=== PATIENT | female | born 1985 ===

== ENCOUNTER 2018-03-07 10:58 | Emergency (ER) | payer SELFPAY ==
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
[2018-03-07] MEDS ORDERED: THIAMINE HCL(*) 200 MG/2 ML IN 100 MG, FOLIC ACID(*) 50 MG/10 ML INJ 1 MG, MULTIVITAMIN... IV ONE (11:34)
[2018-03-07 12:40] LABS: PLATELET COUNT, AUTOMATED 58 K/uL (150-450)
[2018-03-07] MEDS ORDERED: FURO40TA35 PO (12:42)
[2018-03-07] MEDS ORDERED: OXYC-823 PO (12:42)
[2018-03-07] MEDS ORDERED: LACT10SO82 PO (12:42)
[2018-03-07] MEDS ORDERED: PANT40TA65 PO ×2 (12:42)
[2018-03-07] MEDS ORDERED: SPIR25TA80 PO (12:42)
[2018-03-07] MEDS ORDERED: FOLI-68 PO (12:42)
[2018-03-07] MEDS ORDERED: AMIT150T21 PO (12:42)
[2018-03-07] MEDS ORDERED: POTASSIUM HCL (12:42)
[2018-03-07] MEDS ORDERED: FENT1PAT40 (12:42)
[2018-03-07] MEDS ORDERED: [UNRECOGNIZED DRUG - OTHER] (12:42)
--- NOTE | 2018-03-07 13:32 | RADIOLOGY IMAGING REPORT ---
FACILITY: [facility] PATIENT NAME: Luz Maria Glez : 1985 MR: [id number] V: [id number] EXAM DATE: ORDERING PHYSICIAN: HAY LEMUS TECHNOLOGIST: Location: [facility] [place] Patient: Luz Maria Glez : 1985 Visit/Account:[id number] Date of Sevice: 03/07/2018 EXAMINATION: CT Head without intravenous contrast HISTORY: Headache. TECHNIQUE: Axial images were obtained from the skull base to the vertex without intravenous contrast . Sagittal and coronal reformatted images are also submitted. One of the following dose optimization techniques was utilized in the performance of this exam: Autom ated exposure control; adjustment of the mA and/or kV according to the patient's size; or use of an i terative reconstruction technique. Specific details can be referenced in the facility's radiology C T exam operational policy. COMPARISON: None available. FINDINGS: Brain volume: Normal. Ventricles: Negative. Acute ischemic changes: None. Hemorrhage: None. Masses / edema: None. Mitchell-white: Negative. White matter: Negative. Vessels: Negative. Extra-axial: Negative. Calvarium / skull base: Negative. Visualized sinuses / orbits: Rightward nasal septal deviation. IMPRESSION: No acute intracranial abnormality. Report Dictated By: Vimal Osullivan MD at 03/07/2018 1:23 PM Report E-Signed By: Vimal Osullivan MD at 03/07/2018 1:27 PM [id number]
[2018-03-07 14:07] LABS: INR 1.15
[2018-03-07] MEDS ORDERED: ONDANSETRON 4 MG/2 ML VIAL IVP ONE (15:05)
[2018-03-07 15:30] VITALS: BP 119/75
[2018-03-07] MEDS ORDERED: OXYC15TA79 PO (20:31)
[2018-03-07] MEDS ORDERED: LIPA1CAP PO (20:31)
[2018-03-07] MEDS ORDERED: FENT-19 TD (20:31)
== END 2018-03-07 18:17 ==
LOC: ER 11:06
DX: F10.230 Alcohol dependence with withdrawal, uncomplicated (principal); Y90.6 Blood alcohol level of 120-199 mg/100 ml
CPT/HCPCS: 36415; 70450; 80305; 80320; 80329; 81001; 81025; 82150; 83690; 83735; 83880; 84443; 85025; 85610; 96365; 96366; 96375; 99284; J2405; J3411; J3475; J7030; 82040; 82247; 82310; 82374; 82435; 82565; 82947; 84075; 84132; 84155; 84295; 84450; 84460; 84520

== ENCOUNTER 2018-03-07 15:13 | Inpatient (IN) | payer SELFPAY ==
[~2018-03-07] VITALS: Ht 170.2 cm; Wt 58.5 kg
[~2018-03-07 15:13] MED LIST: AMIT150T21 PO; FENT1PAT40; FOLI-68 PO; FURO40TA35 PO; LACT10SO82 PO; OXYC-823 PO; PANT40TA65 PO; POTASSIUM HCL; SPIR25TA80 PO; [UNRECOGNIZED DRUG - OTHER]
[2018-03-07] MEDS ORDERED: DIAZEPAM 10 MG TAB PO PRN (15:50)
[2018-03-07 16:05] VITALS: BP 116/60
--- NOTE | 2018-03-07 16:44 | Hospitalist Consultation ---
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 Her last drink was this morning. She reports drinking about 1.5 liters of vodka per day. She doesn't report any h/o withdrawal seizures or DT's. She does get tremulous with stopping drinking. 3 years ago, she was diagnosed with chronic pancreatitis. She had a gallbladder taken out. She has chronic abdominal pain related to it and the ESLD, so is on a Fentanyl patch and oxycodone. 2 years ago she was diagnosed with liver failure. She reports being on a transplant list until a few months ago. They took her off the list because of "multi-organ failure". 1 year ago, she was diagnosed with heart failure. She is pretty good about taking her usual medications. She reports stable 2-3 pillow orthopnea. No LE edema or worsening abdominal girth. History Problems: (1) Alcohol abuse (2) Cirrhosis Status: Chronic (3) History of cholecystectomy (4) History of delivery Home Meds Reported Medications Amitriptyline Hcl (AMITRIPTYLINE HCL) 150 Mg Tablet, 150 MG PO BID, TAB 03/07/18 Lactulose (LACTULOSE) 10 Gm/15 Ml Solution, 10 GM PO 03/07/18 [Potassium Hcl] No Conflict Check 03/07/18 Folic Acid (FOLIC ACID) 1 Mg Tablet, 1 MG PO BID, TAB 03/07/18 Furosemide (LASIX) 40 Mg Tablet, 1 TAB PO Q8H, TAB 03/07/18 Fentanyl (Fentanyl) 1 Each Patch.td72 03/07/18 Oxycodone Hcl (OXYCONTIN) 10 Mg Tab.er.12h, 15 MG PO 5XDAY, TAB 03/07/18 [Zep Pep] No Conflict Check 03/07/18 Spironolactone (SPIRONOLACTONE) 25 Mg Tablet, 50 MG PO BID, TAB 03/07/18 Pantoprazole Sodium (PANTOPRAZOLE SODIUM) 40 Mg Tablet.dr, 40 MG PO QDAY, TAB.SR 03/07/18 Discontinued Reported Medications Pantoprazole Sodium (PANTOPRAZOLE SODIUM) 40 Mg Tablet.dr, 40 MG PO QDAY, TAB.SR 03/07/18 Allergies: Coded Allergies: aspirin (Verified Allergy, Unknown, 03/07/18) codeine (Verified Allergy, Unknown, 03/07/18) ketorolac (Verified Allergy, Unknown, 03/07/18) tramadol (Verified Allergy, Unknown, 03/07/18) Uncoded Allergies: SULFA DRUGS (Allergy, Unknown, 03/07/18) Other Social/Family Hx Some marijuana use for pain control. She was living in [place], but moved to [place] to be with her parents recently. Hx Alcohol Use: Yes (ALCOHOLIC) Review of Systems All Systems Reviewed/Normal: Yes, Except as Noted Exam General Appearance: Alert, Awake, No Acute Distress Neuro: No Gross deficits Cardiovascular: Other (Tachy, regular, no m/r/g) Respiratory: Clear to Auscultation GI: Other (Mild distention. Mild pain diffusely with palpation. No peritoneal signs. No rigidity.) Extremities: No Edema Integumentary: No Jaundice, No Cyanosis Medical Decision Making Data Points Item Value Date Time Sodium Level 140 mmol/L 03/07/18 1228 Potassium Level 3.5 mmol/L 03/07/18 1228 Chloride Level 98 mmol/L 03/07/18 1228 Carbon Dioxide Level 24 mmol/L 03/07/18 1228 Blood Urea Nitrogen 4 mg/dl L 03/07/18 1228 Creatinine 0.40 mg/dl L 03/07/18 1228 Glomerular Filtration Rate Calc > 60.0 03/07/18 1228 Random Glucose 113 mg/dl H 03/07/18 1228 Calcium Level 9.9 mg/dl 03/07/18 1228 Magnesium Level 1.5 mg/dl L 03/07/18 1228 Total Bilirubin 0.7 mg/dl 03/07/18 1228 Aspartate Amino Transf (AST/SGOT) 115 U/L H 03/07/18 1228 Alanine Aminotransferase (ALT/SGPT) 63 U/L H 03/07/18 1228 Alkaline Phosphatase 121 U/L 03/07/18 1228 Total Protein 8.3 g/dl H 03/07/18 1228 B-Type Natriuretic Peptide < 5 pg/ml 03/07/18 1228 Albumin 4.7 g/dl 03/07/18 1228 Amylase Level 45 U/L 03/07/18 1228 Lipase 64 U/L 03/07/18 1228 Thyroid Stimulating Hormone (TSH) 2.55 uIU/ml 03/07/18 1228 White Blood Count 7.6 k/uL 03/07/18 1228 Hemoglobin 14.8 g/dL 03/07/18 1228 Mean Corpuscular Volume 103.8 fL H 03/07/18 1228 Platelet Count 58 K/uL L 03/07/18 1228 Neutrophils (%) (Auto) 62.0 % 03/07/18 1228 Lymphocytes (%) (Auto) 26.3 % 03/07/18 1228 Monocytes (%) (Auto) 9.6 % 03/07/18 1228 Prothromb Time International Ratio 1.15 03/07/18 1228 Urine Leukocyte Esterase Negative 03/07/18 1105 Urine RBC None /HPF 03/07/18 1105 Urine WBC 1 /HPF 03/07/18 1105 Urine Squamous Epithelial Cells Many /LPF H 03/07/18 1105 Urine Bacteria Few /HPF 03/07/18 1105 Urine Mucus None /HPF 03/07/18 1105 Urine HCG, Qualitative Negative 03/07/18 1105 Urine Opiates Screen Positive 03/07/18 1105 Ur Tricyclic Antidepressants Screen Positive 03/07/18 1105 Serum Alcohol 167 mg/dl 03/07/18 1228 Acetaminophen Level < 10 ug/ml 03/07/18 1228 Salicylates Level < 10 mg/L 03/07/18 1228 EKG / Imaging Imaging Head CT - No acute intracranial abnormality. Assessment and Plan Problems: (1) Alcohol withdrawal Status: Acute Assessment & Plan: She presented to the ER for alcohol detoxification. She drinks 1.5 liters of vodka a day. Her last drink was the morning of admission. She doesn't have a h/o DT's or alcohol withdrawal seizures. She has been cleared medically to be on [facility] for the withdrawal. (2) Hypomagnesemia Status: Acute Assessment & Plan: Secondary to alcohol use and Lasix use. She received magnesium in the ER via the banana bag. Recheck in the morning. (3) Cirrhosis Status: Chronic Assessment & Plan: The patient reports being on a transplant list and being removed a few months ago because of "multi-organ failure". However, she appears to only have a mild transaminitis. She has normal synthetic function (INR and albumin are wnl) and her total bilirubin is also normal. She does have ascites by exam. Will check an ammonia level. Continue Lactulose at her usual dose. She reports being on Lasix 40mg tid and Spironolactone 50mg bid. She has no LE edema, and BNP is normal. Will change her to Lasix 20mg a day and Spironolactone 50mg a day. (4) Chronic pain Status: Chronic Assessment & Plan: She reports the pain is secondary to the ESLD. She also reports chronic pancreatitis. However, her lipase is normal. I will defer to Dr. Castro about dosing of the chronic pain medications. Copies to: GEN CASTRO MD ; Venous Thromboembolism Antithrombotics Is Pt On Any Antithrombotics?: No JONE PANG MD Mar 07, 2018 16:44
[2018-03-07] MEDS ORDERED: NICOTINE INH SYSTEM 10 MG/INH INH PRN (17:35)
[2018-03-07] MEDS ORDERED: NICOTINE CARTRIDGE 1 EA PO PRN (17:35)
[2018-03-07] MEDS ORDERED: IBUPROFEN 200 MG TAB PO PRN (18:10)
[2018-03-07 19:45] VITALS: BP 110/65
[2018-03-07] MEDS ORDERED: FENT-19 TD (20:31)
[2018-03-07] MEDS ORDERED: LIPA1CAP PO (20:31)
[2018-03-07] MEDS ORDERED: OXYC15TA79 PO (20:31)
[2018-03-07] MEDS: LORazepam 1 MG TAB PO PRN (20:55)
[2018-03-07] MEDS: AMITRIPTYLINE HCL 25 MG TAB PO SCH (21:34)
[2018-03-07] MEDS: fentaNYL 50 MCG TDSY TD SCH (22:07)
[2018-03-08 01:49] VITALS: BP 118/78
[2018-03-08 06:03] VITALS: BP 97/60
[2018-03-08 06:37] LABS: PLATELET COUNT, AUTOMATED 38 K/uL (150-450)
[2018-03-08 08:10] VITALS: BP 118/62
[2018-03-08] MEDS: MULTIVITAMINS TAB PO SCH (08:34)
[2018-03-08] MEDS: FUROSEMIDE 20 MG TAB PO SCH (08:34)
[2018-03-08] MEDS: LACTULOSE 10 GM/15 ML UDCUP PO SCH (08:34)
[2018-03-08] MEDS: THIAMINE HCL 100 MG TAB PO SCH (08:34)
[2018-03-08] MEDS: FOLIC ACID 1 MG TAB PO SCH (08:34)
[2018-03-08] MEDS: SPIRONOLACTONE 25 MG TAB PO SCH (08:34)
[2018-03-08] MEDS: LORazepam 1 MG TAB PO PRN ×5 (08:34→20:56)
[2018-03-08] MEDS: oxyCODONE HCL 5 MG CAP PO PRN (08:35)
[2018-03-08] MEDS ORDERED: FUROSEMIDE 20 MG TAB PO SCH (09:00)
[2018-03-08] MEDS ORDERED: SPIRONOLACTONE 25 MG TAB PO SCH (09:00)
[2018-03-08 12:15] VITALS: BP 108/68
--- NOTE | 2018-03-08 13:24 | Hospitalist Progress Note ---
Subjective Progress Notes Subjective 32F admitted to [facility] for EtOH withdrawal. KAVYA overnight, no evidence of acute medical illness other than withdrawal. Physical Exam Vital Signs Date Time Temp Pulse Resp B/P (MAP) Pulse Ox O2 Delivery O2 Flow Rate FiO2 03/08/18 06:03 97.6 106 97/60 (72) 96 Nasal Cannula 1.8 03/08/18 01:49 15 General Appearance: No Acute Distress Neuro: No Gross deficits Cardiovascular: Normal Rhythm & Peripheral Pulses Respiratory: No Respiratory Distress Result Diagram: 03/08/1860003/08/18600 Assessment and Plan Problems: (1) Alcohol withdrawal Status: Acute Assessment & Plan: She presented to the ER for alcohol detoxification. She drinks 1.5 liters of vodka a day. Her last drink was the morning of admission. She doesn't have a h/o DT's or alcohol withdrawal seizures. She has been cleared medically to be on [facility] for the withdrawal. (2) Hypomagnesemia Status: Acute Assessment & Plan: Secondary to alcohol use and Lasix use. She received magnesium in the ER via the banana bag. Improved. (3) Cirrhosis Status: Chronic Assessment & Plan: The patient reports being on a transplant list and being removed a few months ago because of "multi-organ failure". However, she appears to only have a mild transaminitis. She has normal synthetic function (INR and albumin are wnl) and her total bilirubin is also normal. She does have ascites by exam. Will check an ammonia level. Continue Lactulose at her usual dose. She reports being on Lasix 40mg tid and Spironolactone 50mg bid. She has no LE edema, and BNP is normal. Will change her to Lasix 20mg a day and Spironolactone 50mg a day. (4) Chronic pain Status: Chronic Assessment & Plan: She reports the pain is secondary to the ESLD. She also reports chronic pancreatitis. However, her lipase is normal. I will defer to Dr. Cordova about dosing of the chronic pain medications. DUSTIN BARKSDALE DO Mar 08, 2018 13:24
[2018-03-08] MEDS: ONDANSETRON 4 MG ODT TABDP SL PRN (14:03)
[2018-03-08] MEDS: NICOTINE POLACRILEX 2 MG GUM PO PRN (14:11)
[2018-03-08 14:25] VITALS: BP 118/68
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
[2018-03-08] MEDS: POTASSIUM CHL 20 MEQ TABCR PO SCH (17:35)
[2018-03-08] MEDS: AMITRIPTYLINE HCL 25 MG TAB PO SCH (20:57)
[2018-03-09 06:00] VITALS: BP 92/58
[2018-03-09] MEDS: oxyCODONE HCL 5 MG CAP PO PRN ×2 (06:13→16:22)
[2018-03-09] MEDS: LORazepam 1 MG TAB PO PRN ×3 (06:13→14:17)
[2018-03-09] MEDS: ONDANSETRON 4 MG ODT TABDP SL PRN (06:13)
[2018-03-09] MEDS: MULTIVITAMINS TAB PO SCH (08:07)
[2018-03-09] MEDS: SPIRONOLACTONE 25 MG TAB PO SCH (08:08)
[2018-03-09] MEDS: THIAMINE HCL 100 MG TAB PO SCH (08:08)
[2018-03-09] MEDS: FUROSEMIDE 20 MG TAB PO SCH (08:08)
[2018-03-09] MEDS: FOLIC ACID 1 MG TAB PO SCH (08:08)
[2018-03-09] MEDS: POTASSIUM CHL 20 MEQ TABCR PO SCH ×2 (08:08→17:27)
[2018-03-09] MEDS: LACTULOSE 10 GM/15 ML UDCUP PO SCH (08:09)
[2018-03-09] MEDS: NICOTINE POLACRILEX 2 MG GUM PO PRN ×3 (08:12→20:00)
[2018-03-09] MEDS ORDERED: MAGNESIUM HYDROXIDE* 30ML UDCP PO PRN (10:45)
[2018-03-09] MEDS ORDERED: DOCUSATE SODIUM 100 MG CAP PO SCH (10:45)
[2018-03-09] MEDS ORDERED: POLYETHYLENE GLYCOL 17 GM PKT PO SCH (10:45)
[2018-03-09] MEDS ORDERED: BISACODYL 10 MG SUPP PR PRN (10:45)
--- NOTE | 2018-03-09 11:47 | Hospitalist Progress Note ---
Subjective Progress Notes Subjective The patient reports that she has urinated since admission and hasn't had a BM for 13 days. She is eating and drinking. Physical Exam Vital Signs Date Time Temp Pulse Resp B/P (MAP) Pulse Ox O2 Delivery O2 Flow Rate FiO2 03/09/18 06:00 98.7 104 92/58 (69) 94 Room Air 03/08/18 14:25 16 2.0 General Appearance: Other (Sleepy, but awakens easily. Answers questions appropriately.) Cardiovascular: Other (Tachy, regular, no m/r/g) Respiratory: Clear to Auscultation GI: Other (Soft, mild tenderness with palpation, no peritoneal signs. Bladder about 350cc by US) Extremities: No Edema Result Diagram: 03/08/1860003/09/18 0643 Assessment and Plan Problems: (1) Alcohol withdrawal Status: Acute Assessment & Plan: She presented to the ER for alcohol detoxification. She drinks 1.5 liters of vodka a day. Her last drink was the morning of admission. She doesn't have a h/o DT's or alcohol withdrawal seizures. She has been cleared medically to be on BHS for the withdrawal. (2) Hypomagnesemia Status: Acute Assessment & Plan: Secondary to alcohol use and Lasix use. She received magnesium in the ER via the banana bag. Improved. (3) Cirrhosis Status: Chronic Assessment & Plan: The patient reports being on a transplant list and being removed a few months ago because of "multi-organ failure". However, she appears to only have a mild transaminitis. She has normal synthetic function (INR and albumin are wnl) and her total bilirubin is also normal. Ammonia normal. She does have ascites by exam. Continue Lactulose at her usual dose. She reports being on Lasix 40mg tid and Spironolactone 50mg bid. She has no LE edema, and BNP is normal. Will change her to Lasix 20mg a day and Spironolactone 50mg a day. (4) Urine retention Assessment & Plan: She reports no urination for over 36 hours, but she is drinking fluids. BUN/Cr are wnl. 350cc of urine seen on US which is not con sistent normal renal function and reportedly no urination. Will follow. (5) Constipation Status: Chronic Assessment & Plan: She was given a dose of Miralax and will increase Lactulose. (6) Chronic pain Status: Chronic Assessment & Plan: She reports the pain is secondary to the ESLD. She also reports chronic pancreatitis. However, her lipase is normal. I will defer to Dr. Cordova about dosing of the chronic pain medications. JONE PANG MD Mar 09, 2018 11:47
[2018-03-09 14:11] VITALS: BP 102/58
[2018-03-09 20:05] VITALS: BP 102/62
[2018-03-09] MEDS: AMITRIPTYLINE HCL 25 MG TAB PO SCH (20:48)
[2018-03-09] MEDS: fentaNYL 50 MCG TDSY TD SCH (21:00)
[2018-03-09] MEDS ORDERED: FENTANYL PATCH REMOVAL TP SCH (21:00)
[2018-03-10 06:49] VITALS: BP 103/81
[2018-03-10 07:45] LABS: PLATELET COUNT, AUTOMATED 61 K/uL (150-450)
[2018-03-10] MEDS: FOLIC ACID 1 MG TAB PO SCH (08:05)
[2018-03-10] MEDS: MULTIVITAMINS TAB PO SCH (08:05)
[2018-03-10] MEDS: SPIRONOLACTONE 25 MG TAB PO SCH (08:05)
[2018-03-10] MEDS: FUROSEMIDE 20 MG TAB PO SCH (08:05)
[2018-03-10] MEDS: POTASSIUM CHL 20 MEQ TABCR PO SCH ×2 (08:06→17:26)
[2018-03-10] MEDS: THIAMINE HCL 100 MG TAB PO SCH (08:06)
[2018-03-10] MEDS: oxyCODONE HCL 5 MG CAP PO PRN ×2 (08:06→17:50)
[2018-03-10] MEDS: LACTULOSE 10 GM/15 ML UDCUP PO SCH (08:09)
--- NOTE | 2018-03-10 08:10 | BHS Progress Note ---
[facility] - Subjective Progress Notes Subjective "I have to go to rehab....my parents won't let me come home until I do." Suicidal Ideation: None Homicidal Ideation: None [facility] - Objective Physical Exam Vital Signs Vital Signs 03/08/18 03/09/18 03/10/18 14:25 14:11 06:49 Temp 98.2 Pulse 102 Resp 16 B/P (MAP) 103/81 (88) Pulse Ox 92 O2 Delivery Room Air O2 Flow Rate 2.0 Muscle Strength and Tone: Other (weak) Gait and Station: Unsteady [facility] Medications Reviewed: Side Effects, Benefits of Medication, Risks Allergies Reviewed: Yes Mental Status Exam General Appearance: Good Eye Contact, Cooperative, Polite, Unkept Speech: Clear, Spontaneous, Normal Rate, Normal Rhythm, Normal Volume, Normal Tone Mood: Dysthmic/Depressed Affect: Calm, Tearful Thought Process: Organized, Logical, Goal Directed Thought Content: No Suicidal Ideation, No Homicidal Ideation, No Delusions, No Auditory Halllucinations, No Visual Hallucinations, No Thought Broadcasting, No Ideas of Reference Sensorium: Clear Cognition: Alert & Oriented-Person, Alert & Oriented-Place, Alert & Oriented- Time, Cfcsm-[id number]-Lcloxwvmd Memory: Immediate, Recent, Remote (grossly intact) Intelligence: Average Insight Judgment: Fair Result Diagram: 03/08/18 0601 03/09/18 0643 [facility] Assessment and Plan Pavm-zw-Ajkh Encounter Date: Mar 09, 2018 Axme-bh-Srap Encounter Time: 12:00 [facility] Plan: Admit to Unit, Necessary Precautions, Individual/Group Therapy, Admin/Titrate Meds, Educate Patient Tobacco Medications: Not Appropriate Condition Multpiple Antipsychotics Used: No Problems: (1) Alcohol abuse Status: Chronic (2) Alcohol withdrawal Status: Acute Problem Qualifiers (1) Alcohol withdrawal: Complication of substance-induced condition: with unspecified complication Qualified Codes: F10.239 - Alcohol dependence with withdrawal, unspecified BILL COHN NP Mar 10, 2018 08:10
[2018-03-10] MEDS: LORazepam 1 MG TAB PO PRN ×3 (10:11→17:26)
[2018-03-10 10:15] VITALS: BP 108/76
[2018-03-10] MEDS: ONDANSETRON 4 MG ODT TABDP SL PRN (12:05)
[2018-03-10 12:06] VITALS: BP 106/81
--- NOTE | 2018-03-10 13:56 | Hospitalist Progress Note ---
Subjective Progress Notes Subjective She has complaints of abdominal pain. She had no acute events overnight. Patient Complains of: Cardiovascular: No: Chest Pain Respiratory: No: Shortness of Breath Gastrointestinal: No Nausea, No Vomiting Physical Exam Vital Signs Date Time Temp Pulse Resp B/P (MAP) Pulse Ox O2 Delivery O2 Flow Rate FiO2 03/10/18 12:06 98.6 102 106/81 (89) 94 Room Air 03/09/18 14:11 2.0 03/08/18 14:25 16 General Appearance: Alert, Awake, No Acute Distress, Afebrile Cardiovascular: Regular Rate and Rhythm Respiratory: No Respiratory Distress, Clear to Auscultation GI: Other (ascites present to abdomen) Psych: Alert & Oriented X3, Appropriate Mood & Affect Result Diagram: 03/10/1873703/10/18737 Assessment and Plan Problems: (1) Alcohol withdrawal Status: Acute Assessment & Plan: She presented to the ER for alcohol detoxification. She drinks 1.5 liters of vodka a day. Her last drink was the morning of admission. She doesn't have a h/o DT's or alcohol withdrawal seizures. She has been cleared medically to be on BHS for the withdrawal. (2) Hypomagnesemia Status: Acute Assessment & Plan: Secondary to alcohol use and Lasix use. She received magnesium in the ER via the banana bag. Improved. (3) Cirrhosis Status: Chronic Assessment & Plan: The patient reports being on a transplant list and being removed a few months ago because of "multi-organ failure". However, she appears to only have a mild transaminitis. She has normal synthetic function (INR and albumin are wnl) and her total bilirubin is also normal. Ammonia normal. She does have ascites by exam. Continue Lactulose at her usual dose. She reports being on Lasix 40mg tid and Spironolactone 50mg bid. She has no LE edema, and BNP is normal. Will change her to Lasix 20mg a day and Spironolactone 50mg a day. (4) Urine retention Assessment & Plan: Improved. She reports no urination for over 36 hours 03/09, but she is drinking fluids. BUN/Cr are wnl. 350cc of urine seen on US which is not consistent normal renal function and reportedly no urination. (5) Constipation Status: Chronic Assessment & Plan: She was given a dose of Miralax and will increase Lactulose. (6) Chronic pain Status: Chronic Assessment & Plan: She reports the pain is secondary to the ESLD. She also reports chronic pancreatitis. However, her lipase is normal. I will defer to Dr. Cordova about dosing of the chronic pain medications. Problem Qualifiers (1) Alcohol withdrawal: Complication of substance-induced condition: with unspecified complication Qualified Codes: F10.239 - Alcohol dependence with withdrawal, unspecified ALMAS ALANIZ ANIMAL TECH Mar 10, 2018 13:56
--- NOTE | 2018-03-10 14:12 | B[facility] Progress Note ---
[facility] - Subjective Progress Notes Subjective Pt seen in treatment team meeting with her mother Myrna present by speaker phone. Pt is tearful, reporting depression 10/10, denies SI. Depressed bc of her serious illness, fear of not being able to detox off alcohol and benzo's, fear of being homeless. Mother is warm and supportive but makes it clear that p t cannot return home due to mother's own significant health concerns. Pt says she does want to go to a rehab program and does want to detox off of opiate pain meds if that is what is necessary. Pt is still in alcohol withdrawal, tremulous, with a score of 6 on the NWI protocol this morning, for which she received 2 mg of ativan. Pt has been using oxycodone IR 15 mg about once per day each am, and is still on her fentanyl patch. Will decrease dose of the prn oxycodone IR to 5 mg today, then hope to d/c the prn altogether tomorrow. Will not be able to add clonidine for opiate withdrawal until she has fully completed the alcohol detox so as to avoid masking withdrawal by lowering BP. Her platelet count is improved today to 61. Other labs essentially stable. I have placed a call to Dr. Crocker (cma) at [facility] to verify pt's stated hx of end stage liver failure. Her labs and exam are not entirely consistent with this dx as per Dr. Almanza. For now continue NWI protocol. Suicidal Ideation: None Homicidal Ideation: None [facility] - Objective Physical Exam Vital Signs Vital Signs 03/08/18 03/09/18 03/10/18 14:25 14:11 12:06 Temp 98.6 Pulse 102 Resp 16 B/P (MAP) 106/81 (89) Pulse Ox 94 O2 Delivery Room Air O2 Flow Rate 2.0 Muscle Strength and Tone: Other (weak) Gait and Station: Unsteady [facility] Medications Reviewed: Side Effects, Benefits of Medication, Risks Allergies Reviewed: Yes Mental Status Exam General Appearance: Good Eye Contact, Cooperative, Polite, Unkept, Tearful Speech: Clear, Spontaneous, Normal Rate, Normal Rhythm, Normal Tone, Other (soft) Mood: Dysthmic/Depressed Affect: Calm, Sad, Tearful, Anxious Thought Process: Organized, Logical, Goal Directed Thought Content: No Suicidal Ideation, No Homicidal Ideation, No Delusions, No Auditory Halllucinations, No Visual Hallucinations, No Thought Broadcasting, No Ideas of Reference Sensorium: Clear Cognition: Alert & Oriented-Person, Alert & Oriented-Place, Alert & Oriented- Time, Ndyfj-[id number]-Ulawifssq Memory: Immediate, Recent, Remote (grossly intact) Intelligence: Average Insight Judgment: Fair Result Diagram: 03/10/18 0738 03/10/18 0738 [facility] Assessment and Plan Aakf-fb-[id number] Encounter Date: Mar 10, 2018 Gnat-ft-Zbss Encounter Time: 08:30 [facility] Plan: Admit to Unit, Necessary Precautions, Individual/Group Therapy, Admin/Titrate Meds, Educate Patient Tobacco Medications: Not Appropriate Condition Multpiple Antipsychotics Used: No Problems: (1) Alcohol withdrawal Status: Acute (2) Alcoholic liver failure (3) Opiate withdrawal (4) Alcohol use disorder, severe, dependence (5) Opiate dependence (6) Substance induced mood disorder Problem Qualifiers (1) Alcohol withdrawal: Complication of substance-induced condition: with unspecified complication Qualified Codes: F10.239 - Alcohol dependence with withdrawal, unspecified GEN CASTRO MD Mar 10, 2018 14:12
[2018-03-10] MEDS: NICOTINE POLACRILEX 2 MG GUM PO PRN (15:41)
[2018-03-10 17:00] VITALS: BP 105/65
[2018-03-10] MEDS: AMITRIPTYLINE HCL 25 MG TAB PO SCH (21:12)
[2018-03-10 21:15] VITALS: BP 95/60
[2018-03-11] MEDS: oxyCODONE HCL 5 MG CAP PO PRN (05:15)
[2018-03-11 05:19] VITALS: BP 97/75
[2018-03-11] MEDS: THIAMINE HCL 100 MG TAB PO SCH (08:41)
[2018-03-11] MEDS: POTASSIUM CHL 20 MEQ TABCR PO SCH ×2 (08:41→17:29)
[2018-03-11] MEDS: MULTIVITAMINS TAB PO SCH (08:42)
[2018-03-11] MEDS: FOLIC ACID 1 MG TAB PO SCH (08:42)
[2018-03-11] MEDS: FUROSEMIDE 20 MG TAB PO SCH (08:42)
[2018-03-11] MEDS: SPIRONOLACTONE 25 MG TAB PO SCH (08:42)
[2018-03-11] MEDS: LACTULOSE 10 GM/15 ML UDCUP PO SCH (08:48)
[2018-03-11] MEDS: ONDANSETRON 4 MG ODT TABDP SL PRN (09:31)
[2018-03-11 09:45] VITALS: BP 82/53
[2018-03-11] MEDS: NICOTINE POLACRILEX 2 MG GUM PO PRN (11:25)
--- NOTE | 2018-03-11 12:35 | BHS Progress Note ---
[facility] - Subjective Progress Notes Subjective Pt seen with team in conference room. Pt c/o vomiting last night although this was not witnessed by nursing staff. Pt not tremulous today, her last lorazepam was 2 mg at 5 pm last night, her NWI score today was 3, but part of that was for nausea which likely represents opiate withdrawal. pt still depressed, anxious, worried that she will not be able to handle taper of opiates due to her abdominal pain which she relates to her cirrhosis. Suicidal Ideation: None Homicidal Ideation: None [facility] - Objective Physical Exam Vital Signs Vital Signs 03/09/18 03/11/18 14:11 09:45 Temp 99.0 Pulse 94 Resp 12 B/P (MAP) 82/53 (63) Pulse Ox 94 O2 Delivery Room Air O2 Flow Rate 2.0 Muscle Strength and Tone: WNL Gait and Station: Steady [facility] Medications Reviewed: Side Effects, Benefits of Medication, Risks Allergies Reviewed: Yes Mental Status Exam General Appearance: Casual, Well Groomed, Good Eye Contact, Cooperative, Polite, Good Interaction, Tearful (at a few times; less so than yesterday) Speech: Clear, Spontaneous, Normal Rate, Normal Rhythm, Normal Volume, Normal Tone Mood: Dysthmic/Depressed Affect: Calm, Sad, Tearful (less than yesterday), Anxious (mildly) Thought Process: Organized, Logical, Goal Directed Thought Content: No Suicidal Ideation, No Homicidal Ideation, No Delusions, No Auditory Halllucinations, No Visual Hallucinations, No Thought Broadcasting, No Ideas of Reference Sensorium: Clear Cognition: Alert & Oriented-Person, Alert & Oriented-Place, Alert & Oriented- Time, Pcmmv-Unzazzir-Qmncysmgs Memory: Immediate, Recent, Remote Intelligence: Average Insight Judgment: Fair Result Diagram: 03/10/18 0738 03/10/18 0738 [facility] Assessment and Plan [id number] Encounter Date: Mar 11, 2018 [id number] Encounter Time: 09:00 [facility] Plan: Admit to Unit, Necessary Precautions, Individual/Group Therapy, Admin/Titrate Meds, Educate Patient Tobacco Medications: Not Appropriate Condition Multpiple Antipsychotics Used: No Problems: (1) Alcohol withdrawal Status: Acute Assessment & Plan: Appears to be nearing completion of alcohol detox, much less tremulous, pulse normalizing, last Ativan was 2mg at 5 pm yesterday. Continue to monitor via NWI protocol and medicate if indicated. NWI scores may be somewhat "falsely elevated" because of opiate withdrawal signs and symptoms. (2) Opiate withdrawal Status: Acute Assessment & Plan: Pt. experiencing typical withdrawal symptoms-- body aches, nausea, says she is vomiting though not witnessed. No piloerection noted. Patient responding well to support-- we pointed out how far she has already come, from 15 mg oxy-IR 5 times per day prior to admission, to DC'ing oxy-IR today. Pt understands that she will experience "flu-like sx's" of opiate withdrawal, and that we can support her with zofran, also relaxation tapes, meditation, mindfulness education. We cannot use clonidine at this time due to low bp and still in alcohol withdrawal (don't want to mask elevated vitals). Also need to minimize all meds given alcoholic cirrhosis. (3) Alcohol use disorder, severe, dependence Status: Chronic Assessment & Plan: We are applying to rehab facilities for powt-detox-- needs [facility] re[facility] treatment 3 to 6 months. PPD ordered today. (4) Opiate dependence Status: Chronic Assessment & Plan: needs rehab treatment, applications in process (5) Substance induced mood disorder Status: Acute Assessment & Plan: Still tearful, [place], and these mood sx's likely to continue for some time. Antidepressants not indicated at this time due to cirrhosis, also sx's may resolve as she gains more time sober. (6) Cirrhosis Status: Chronic Assessment & Plan: Discussed pt's medical status with Dr. Almanza (test automation architect here) and with Dr. Crocker by phone from [facility]. Pt last seen in [facility] in 2016, diagnosis is cirrhosis secondary to alcohol. Pt was never on transplant list, never diagnosed with liver or renal or multi- organ failure. Here, patient has had multiple somatic complaints and uses sophisticated language (like yesterday requested "paracentesis" because of abdominal pain despite having only MINIMAL ascites). But her labs have been stable, labs do not indicate liver failure, synthetic function is good, no ankle edema, non-icteric. So far she is tolerating lower doses of lasix and spironolactone well-- her abdominal girth on admission was 38 inches, and today is decreased at 36.2 inches. Will check routine labs tomorrow inc CMP, CBC, Mg, INR. (7) Somatic symptom and related disorders Status: Chronic Assessment & Plan: Pt tends to be somatic, histrionic, and seems to have exaggerated the extent of her liver disease. Continue to educate pt, encourage healthy coping skills, support her experience of pain with non-pharmacological approaches. Problem Qualifiers (1) Alcohol withdrawal: Complication of substance-induced condition: with unspecified complication Qualified Codes: F10.239 - Alcohol dependence with withdrawal, unspecified (2) Cirrhosis: Hepatic cirrhosis type: alcoholic cirrhosis GEN CASTRO MD Mar 11, 2018 12:34
--- NOTE | 2018-03-11 13:35 | Hospitalist Progress Note ---
Subjective Progress Notes Subjective She has some complaints of abdominal pain, which she believes is her usual chronic pain. She reports improvement in her ascites. She is urinating without difficulty. Patient Complains of: Cardiovascular: No: Chest Pain Respiratory: No: Shortness of Breath Gastrointestinal: No Nausea Physical Exam Vital Signs Date Time Temp Pulse Resp B/P (MAP) Pulse Ox O2 Delivery O2 Flow Rate FiO2 03/11/18 09:45 99.0 94 12 82/53 (63) 94 Room Air 03/09/18 14:11 2.0 General Appearance: Alert, Awake, No Acute Distress, Afebrile Neuro: No Gross deficits Cardiovascular: Regular Rate and Rhythm Respiratory: No Respiratory Distress, Clear to Auscultation GI: Other (distention to abdomen noted, but improved in size and softer to palpation) Extremities: Warm, Perfused; No Edema Psych: Alert & Oriented X3, Appropriate Mood & Affect Result Diagram: 03/10/1838 03/10/18 0738 Assessment and Plan Problems: (1) Alcohol withdrawal Status: Acute Assessment & Plan: She presented to the ER for alcohol detoxification. She drinks 1.5 liters of vodka a day. Her last drink was the morning of admission. She doesn't have a h/o DT's or alcohol withdrawal seizures. She has been cleared medically to be on [facility] for the withdrawal. She is cleared for admission to an inpatient rehab facility. (2) Hypomagnesemia Status: Acute Assessment & Plan: Secondary to alcohol use and Lasix use. She received ma gnesium in the ER via the banana bag. Improved. (3) Cirrhosis Status: Chronic Assessment & Plan: The patient reports being on a transplant list and being removed a few months ago because of "multi-organ failure". However, she appears to only have a mild transaminitis. She has normal synthetic function (INR and albumin are wnl) and her total bilirubin is also normal. Ammonia normal. She does have ascites by exam. Continue Lactulose at her usual dose. She reports being on Lasix 40mg tid and Spironolactone 50mg bid. She has no LE edema, and BNP is normal. Will change her to Lasix 20mg a day and Spironolactone 50mg a day. She is stable from a medical standpoint to be admitted to an inpatient rehab facility. The Hospitalist service will sign off. Please call for questions. (4) Urine retention Assessment & Plan: Improved. She reports no urination for over 36 hours 1/6, but she is drinking fluids. BUN/Cr are wnl. 350cc of urine seen on US which is not consistent normal renal function and reportedly no urination. (5) Constipation Status: Chronic Assessment & Plan: Resolved. She was given a dose of Miralax and will continue Lactulose. (6) Chronic pain Status: Chronic Assessment & Plan: She reports the pain is secondary to the ESLD. She also reports chronic pancreatitis. However, her lipase is normal. I will defer to Dr. Cordova about dosing of the chronic pain medications. Problem Qualifiers (1) Alcohol withdrawal: Complication of substance-induced condition: with unspecified complication Qualified Codes: F10.239 - Alcohol dependence with withdrawal, unspecified (2) Cirrhosis: Hepatic cirrhosis type: alcoholic cirrhosis ALMAS ALANIZ Mar 11, 2018 13:34
[2018-03-11 14:01] VITALS: BP 108/80
[2018-03-11] MEDS: MAG HYD/AL HYD/SIMETH 30ML UDC PO PRN (14:06)
[2018-03-11] MEDS: LORazepam 1 MG TAB PO PRN (14:06)
[2018-03-11 17:00] VITALS: BP 102/68
[2018-03-11] MEDS: AMITRIPTYLINE HCL 25 MG TAB PO SCH (21:46)
[2018-03-12 06:20] VITALS: BP 96/63
[2018-03-12 06:54] LABS: PLATELET COUNT, AUTOMATED 65 K/uL (150-450)
[2018-03-12] MEDS: THIAMINE HCL 100 MG TAB PO SCH (08:26)
[2018-03-12] MEDS: FUROSEMIDE 20 MG TAB PO SCH (08:26)
[2018-03-12] MEDS: MULTIVITAMINS TAB PO SCH (08:26)
[2018-03-12] MEDS: FOLIC ACID 1 MG TAB PO SCH (08:26)
[2018-03-12] MEDS: POTASSIUM CHL 20 MEQ TABCR PO SCH ×2 (08:26→17:13)
[2018-03-12 08:29] VITALS: BP 96/73
[2018-03-12] MEDS: LACTULOSE 10 GM/15 ML UDCUP PO SCH (08:30)
[2018-03-12] MEDS: SPIRONOLACTONE 25 MG TAB PO SCH (08:30)
--- NOTE | 2018-03-12 11:39 | BHS Progress Note ---
S - Subjective Progress Notes Subjective Patient remains verbalizing a desire to enter rehab and continue to abstain from all opiates and alcohol. Today we will let current fentanyl patch run its course and leave it applied until Saturday, and will manage any symptoms of withdrawal accordingly. Will plan on discharge to a crisis bed to await entrance into rehab on Saturday of this coming week. Patient is agreeable to this plan. Will use hydroxyzine and clonidine as needed for symptomatic relief. Patient reporting poor sleep last night. Nursing staff reports adequate sleep. Will increase hydroxyzine at night for likely increased opiate withdrawal symptoms over next few days. No other concerns. Suicidal Ideation: None Homicidal Ideation: None [facility] - Objective Physical Exam Vital Signs Vital Signs Date Time Temp Pulse Resp B/P (MAP) Pulse Ox O2 Delivery O2 Flow Rate FiO2 03/12/18 08:29 98.3 103 96/73 (81) 95 Room Air 03/12/18 06:20 15 03/09/18 14:11 2.0 Muscle Strength and Tone: WNL Gait and Station: Steady [facility] Medications Reviewed: Side Effects, Benefits of Medication, Risks Allergies Reviewed: Yes Mental Status Exam General Appearance: Casual, Well Groomed, Good Eye Contact, Cooperative, Polite, Good Interaction, Tearful (at times talking to her mother) Speech: Clear, Spontaneous, Normal Rate, Normal Rhythm, Normal Volume, Normal Tone Mood: Dysthmic/Depressed (improving) Affect: Calm, Sad, Tearful, Anxious (stated so, but no clinically relevant signs of opiate withdrawal. ) Thought Process: Organized, Logical, Goal Directed; No Loose Associations, No Flight of Ideas Thought Content: No Suicidal Ideation, No Homicidal Ideation, No Delusions, No Auditory Halllucinations, No Visual Hallucinations, No Thought Broadcasting, No Ideas of Reference, No Obsessions, No Compulsions Sensorium: Clear Cognition: Alert & Oriented-Person, Alert & Oriented-Place, Alert & Oriented- Time, Rsztq-[id number]-Lcwnebdua Memory: Immediate, Recent, Remote Intelligence: Average Insight Judgment: Fair (improving in absence of alcohol and opiates) Result Diagram: 03/12/1844 03/12/1844 [facility] Assessment and Plan [id number] Encounter Date: Mar 12, 2018 [id number]-pl-[id number] Encounter Time: 10:00 [facility] Plan: Admit to Unit, Necessary Precautions, Individual/Group Therapy, Admin/Titrate Meds, Educate Patient Tobacco Medications: Not Appropriate Condition Multpiple Antipsychotics Used: No Problems: (1) Alcohol use disorder, severe, dependence Status: Chronic (2) Opiate dependence Status: Chronic (3) Opiate withdrawal Status: Acute (4) Alcohol withdrawal Status: Acute (5) Substance induced mood disorder Status: Acute (6) Somatic symptom and related disorders Status: Chronic Condition 1. will let current patch remain on until Saturday. 2. will use hydroxyzine and clonidine as needed for symptomatic relief. 3. will solidify plans for entrance into rehab. Problem Qualifiers (1) Opiate dependence: Substance use status: with opioid-induced mood disorder Qualified Codes: F11.24 - Opioid dependence with opioid-induced mood disorder (2) Alcohol withdrawal: Complication of substance-induced condition: with unspecified complication Qualified Codes: F10.239 - Alcohol dependence with withdrawal, unspecified SATISH JOVEL MD Mar 12, 2018 11:39
[2018-03-12] MEDS ORDERED: hydrOXYzine 25 MG TAB PO ONE (12:50)
[2018-03-12] MEDS: NICOTINE POLACRILEX 2 MG GUM PO PRN ×3 (13:11→20:52)
[2018-03-12] MEDS: MAG HYD/AL HYD/SIMETH 30ML UDC PO PRN (17:13)
[2018-03-12] MEDS ORDERED: hydrOXYzine PAMOATE 25 MG CAP PO PRN (18:55)
[2018-03-12] MEDS: AMITRIPTYLINE HCL 25 MG TAB PO SCH (20:38)
[2018-03-12] MEDS: hydrOXYzine PAMOATE 25 MG CAP PO SCH (20:38)
[2018-03-12] MEDS ORDERED: hydrOXYzine 25 MG TAB PO SCH (21:00)
[2018-03-12 22:07] VITALS: BP 107/84
[2018-03-13 04:04] VITALS: BP 103/76
[2018-03-13] MEDS: POTASSIUM CHL 20 MEQ TABCR PO SCH ×2 (08:14→17:11)
[2018-03-13] MEDS: MULTIVITAMINS TAB PO SCH (08:15)
[2018-03-13] MEDS: THIAMINE HCL 100 MG TAB PO SCH (08:15)
[2018-03-13] MEDS: SPIRONOLACTONE 25 MG TAB PO SCH (08:15)
[2018-03-13] MEDS: LACTULOSE 10 GM/15 ML UDCUP PO SCH (08:15)
[2018-03-13] MEDS: FUROSEMIDE 20 MG TAB PO SCH (08:15)
[2018-03-13] MEDS: FOLIC ACID 1 MG TAB PO SCH (08:15)
[2018-03-13] MEDS ORDERED: hydrOXYzine PAMOATE 25 MG CAP PO ONE (08:35)
[2018-03-13] MEDS ORDERED: hydrOXYzine 25 MG TAB PO PRN (11:20)
[2018-03-13 11:33] VITALS: BP 116/84
--- NOTE | 2018-03-13 12:06 | BHS Progress Note ---
[facility] - Subjective Progress Notes Subjective Patient states she has full intentions of entering and completing rehab program. Opiate withdrawal nearing completion, with final fentanyl patch to be removed tomorrow. Patient medically will be stable enough to enter rehab program, early next week. Patient has a history of promoting various physiologic symptoms over the years, likely in a conscious effort to obtain opiates, verses a more somatoform illness. Importantly patient has no evidence of a medical condition that would prohibit her from successfully completing rehab. Specifically, no evidence of congestive heart failure exists, and current hepatic function is considered stable, and continues to improve in the absence of alcohol. Suicidal Ideation: None Homicidal Ideation: None [facility] - Objective Physical Exam Vital Signs Vital Signs Date Time Temp Pulse Resp B/P (MAP) Pulse Ox O2 Delivery O2 Flow Rate FiO2 03/13/18 11:33 99.2 119 116/84 (95) 99 Room Air 03/13/18 04:04 15 03/09/18 14:11 2.0 Hematology Test 03/08/18 06:01 03/09/18 06:43 03/11/18 12:50 03/12/18 06:44 Magnesium Level 1.9 mg/dl (1.7-2.2) Ammonia 12 UMOL/L (9-33) B-Type Natriuretic Peptide 8 pg/ml (0-100) Red Blood Count 3.51 M/uL (4.17-5.56) Mean Corpuscular Volume 106.2 fL (80.0-96.0) Mean Corpuscular Hemoglobin 36.3 pg (26.0-33.0) Mean Corpuscular Hemoglobin Concent 34.2 g/dL (32.0-36.0) Red Cell Distribution Width 14.4 % (11.5-14.5) Mean Platelet Volume 9.1 fL (7.2-11.1) Neutrophils (%) (Auto) 63.6 % (39.4-72.5) Lymphocytes (%) (Auto) 25.9 % (17.6-49.6) Monocytes (%) (Auto) 7.8 % (4.1-12.4) Eosinophils (%) (Auto) 2.1 % (0.4-6.7) Basophils (%) (Auto) 0.6 % (0.3-1.4) Nucleated RBC Relative Count (auto) 0.0 /100WBC Neutrophils # (Auto) 3.1 K/uL (2.0-7.4) Lymphocytes # (Auto) 1.3 K/uL (1.3-3.6) Monocytes # (Auto) 0.4 K/uL (0.3-1.0) Eosinophils # (Auto) 0.1 K/uL (0.0-0.5) Basophils # (Auto) 0.0 K/uL (0.0-0.1) Nucleated RBC Absolute Count (auto) 0.00 K/uL Peripheral Blood Smear Yes Y/N Sodium Level 136 mmol/L (137-145) Potassium Level 4.1 mmol/L (3.5-5.0) Chloride Level 102 mmol/L (98-107) Carbon Dioxide Level 25 mmol/L (22-31) Blood Urea Nitrogen 7 mg/dl (7-18) Creatinine 0.50 mg/dl (0.52-1.04) Glomerular Filtration Rate Calc > 60.0 Random Glucose 106 mg/dl (75-110) Calcium Level 9.5 mg/dl (8.4-10.2) Total Bilirubin 0.4 mg/dl (0.2-1.3) Aspartate Amino Transf (AST/SGOT) 68 U/L (0-35) Alanine Aminotransferase (ALT/SGPT) 64 U/L (0-56) Alkaline Phosphatase 82 U/L (0-126) Total Protein 6.6 g/dl (6.3-8.2) Albumin 3.8 g/dl (3.5-5.0) Chemistry Test 03/08/18 06:01 03/09/18 06:43 03/11/18 12:50 03/12/18 06:44 Magnesium Level 1.9 mg/dl (1.7-2.2) Ammonia 12 UMOL/L (9-33) B-Type Natriuretic Peptide 8 pg/ml (0-100) White Blood Count 4.9 k/uL (4.5-11.0) Red Blood Count 3.51 M/uL (4.17-5.56) Hemoglobin 12.7 g/dL (12.0-16.0) Hematocrit 37.3 % (34.0-47.0) Mean Corpuscular Volume 106.2 fL (80.0-96.0) Mean Corpuscular Hemoglobin 36.3 pg (26.0-33.0) Mean Corpuscular Hemoglobin Concent 34.2 g/dL (32.0-36.0) Red Cell Distribution Width 14.4 % (11.5-14.5) Platelet Count 65 K/uL (150-450) Mean Platelet Volume 9.1 fL (7.2-11.1) Neutrophils (%) (Auto) 63.6 % (39.4-72.5) Lymphocytes (%) (Auto) 25.9 % (17.6-49.6) Monocytes (%) (Auto) 7.8 % (4.1-12.4) Eosinophils (%) (Auto) 2.1 % (0.4-6.7) Basophils (%) (Auto) 0.6 % (0.3-1.4) Nucleated RBC Relative Count (auto) 0.0 /100WBC Neutrophils # (Auto) 3.1 K/uL (2.0-7.4) Lymphocytes # (Auto) 1.3 K/uL (1.3-3.6) Monocytes # (Auto) 0.4 K/uL (0.3-1.0) Eosinophils # (Auto) 0.1 K/uL (0.0-0.5) Basophils # (Auto) 0.0 K/uL (0.0-0.1) Nucleated RBC Absolute Count (auto) 0.00 K/uL Peripheral Blood Smear Yes Y/N Glomerular Filtration Rate Calc > 60.0 Calcium Level 9.5 mg/dl (8.4-10.2) Total Bilirubin 0.4 mg/dl (0.2-1.3) Aspartate Amino Transf (AST/SGOT) 68 U/L (0-35) Alanine Aminotransferase (ALT/SGPT) 64 U/L (0-56) Alkaline Phosphatase 82 U/L (0-126) Total Protein 6.6 g/dl (6.3-8.2) Albumin 3.8 g/dl (3.5-5.0) Muscle Strength and Tone: WNL Gait and Station: Steady S Medications Reviewed: Side Effects, Benefits of Medication, Risks Allergies Reviewed: Yes Mental Status Exam General Appearance: Casual, Well Groomed, Good Eye Contact, Cooperative, Polite, Good Interaction; No Tearful, No Psychomotor Agitation, No Psychomotor Retardation, No Bizarre Mannerisms, No Tics Speech: Clear, Spontaneous, Normal Rate, Normal Rhythm, Normal Volume, Normal Tone Mood: Dysthmic/Depressed (improving, in absence of alcohol and opiates) Affect: Full and Appropriate (at times); No Sad, No Withdrawn, No Tearful, No Anxious, No Agitated Thought Process: Organized, Logical, Goal Directed; No Loose Associations, No Flight of Ideas Thought Content: No Suicidal Ideation, No Homicidal Ideation, No Delusions, No Auditory Halllucinations, No Visual Hallucinations, No Thought Broadcasting, No Ideas of Reference, No Obsessions, No Compulsions Sensorium: Clear Cognition: Alert & Oriented-Person, Alert & Oriented-Place, Alert & Oriented- Time, Puhfy-Cchhxaae-Ktplorcad Memory: Immediate, Recent, Remote Intelligence: Average Insight Judgment: Fair (improving in absence of alcohol and opiates) Result Diagram: 03/12/18 0644 03/12/18 0644 [facility] Assessment and Plan Wdfw-aw-Pafi Encounter Date: Mar 13, 2018 [id number] Encounter Time: 08:15 [facility] Plan: Admit to Unit, Necessary Precautions, Individual/Group Therapy, Admin/Titrate Meds, Educate Patient Tobacco Medications: Not Appropriate Condition Multpiple Antipsychotics Used: No Problems: (1) Alcohol use disorder, severe, dependence Status: Chronic (2) Opiate dependence Status: Chronic (3) Opiate withdrawal Status: Acute (4) Alcohol withdrawal Status: Resolved (5) Substance induced mood disorder Status: Acute (6) Somatic symptom and related disorders Status: Chronic Condition 1. continue treatment. 2. solidify entrance into rehab.early next week. 3. start trazodone tonight. Problem Qualifiers (1) Opiate dependence: Substance use status: with opioid-induced mood disorder Qualified Codes: F11.24 - Opioid dependence with opioid-induced mood disorder (2) Alcohol withdrawal: Complication of substance-induced condition: with unspecified complication Qualified Codes: F10.239 - Alcohol dependence with withdrawal, unspecified SATISH JOVEL MD Mar 13, 2018 12:06
[2018-03-13] MEDS: NICOTINE POLACRILEX 2 MG GUM PO PRN (12:33)
[2018-03-13] MEDS: hydrOXYzine PAMOATE 25 MG CAP PO PRN ×2 (12:38→16:30)
[2018-03-13] MEDS ORDERED: NICOTINE CARTRIDGE 1 EA PO PRN (14:55)
[2018-03-13] MEDS: NICOTINE INH SYSTEM 10 MG/INH INH PRN ×2 (15:43→19:20)
[2018-03-13] MEDS ORDERED: traZODone HCL 50 MG TAB PO SCH (21:00)
[2018-03-13 21:04] VITALS: BP 123/84
[2018-03-13] MEDS: hydrOXYzine PAMOATE 25 MG CAP PO SCH (21:21)
[2018-03-13] MEDS: AMITRIPTYLINE HCL 25 MG TAB PO SCH (21:23)
[2018-03-14 05:48] VITALS: BP 106/73
[2018-03-14] MEDS: FUROSEMIDE 20 MG TAB PO SCH (08:21)
[2018-03-14] MEDS: POTASSIUM CHL 20 MEQ TABCR PO SCH ×2 (08:22→17:46)
[2018-03-14] MEDS: THIAMINE HCL 100 MG TAB PO SCH (08:22)
[2018-03-14] MEDS: MULTIVITAMINS TAB PO SCH (08:22)
[2018-03-14] MEDS: FOLIC ACID 1 MG TAB PO SCH (08:22)
[2018-03-14] MEDS: SPIRONOLACTONE 25 MG TAB PO SCH (08:22)
[2018-03-14] MEDS: hydrOXYzine PAMOATE 25 MG CAP PO PRN ×3 (08:37→21:18)
[2018-03-14] MEDS: LACTULOSE 10 GM/15 ML UDCUP PO SCH (08:43)
[2018-03-14] MEDS ORDERED: FENTANYL PATCH REMOVAL TP ONE (09:00)
[2018-03-14] MEDS: NICOTINE INH SYSTEM 10 MG/INH INH PRN (09:56)
[2018-03-14 10:00] VITALS: BP 100/70
--- NOTE | 2018-03-14 12:23 | BHS Progress Note ---
BHS - Subjective Progress Notes Subjective Patient continues to be somewhat ambivalent regarding going to treatment as final Physiologic opiate withdrawal nears completion. CT scan of the abdomen from [place] on 2018 indicates likely cirrhosis, and a rule out diagnosis of hepatocellular carcinoma. These results were discussed with family members and will be with patient as well. Patient continues to gravitate easily to sick role, but denies any abdominal discomfort today. Will have routine labs and EKG today, will increase trazodone and stop Zofran and stop lactulose. Will decrease amitriptyline. Will plan for discharge to crisis bed to await entrance into rehab early next week. Appetite good, sleep problematic. Mood improving. Patient stating "I feel better already" referring to absence of alcohol and opiate use. Suicidal Ideation: None Homicidal Ideation: None S - Objective Physical Exam Vital Signs Hematology Test 03/08/18 06:01 03/09/18 06:43 03/11/18 12:50 03/12/18 06:44 Magnesium Level 1.9 mg/dl (1.7-2.2) Ammonia 12 UMOL/L (9-33) B-Type Natriuretic Peptide 8 pg/ml (0-100) Tuberculin Skin Test 0 mm Red Blood Count 3.51 M/uL (4.17-5.56) Mean Corpuscular Volume 106.2 fL (80.0-96.0) Mean Corpuscular Hemoglobin 36.3 pg (26.0-33.0) Mean Corpuscular Hemoglobin Concent 34.2 g/dL (32.0-36.0) Red Cell Distribution Width 14.4 % (11.5-14.5) Mean Platelet Volume 9.1 fL (7.2-11.1) Neutrophils (%) (Auto) 63.6 % (39.4-72.5) Lymphocytes (%) (Auto) 25.9 % (17.6-49.6) Monocytes (%) (Auto) 7.8 % (4.1-12.4) Eosinophils (%) (Auto) 2.1 % (0.4-6.7) Basophils (%) (Auto) 0.6 % (0.3-1.4) Nucleated RBC Relative Count (auto) 0.0 /100WBC Neutrophils # (Auto) 3.1 K/uL (2.0-7.4) Lymphocytes # (Auto) 1.3 K/uL (1.3-3.6) Monocytes # (Auto) 0.4 K/uL (0.3-1.0) Eosinophils # (Auto) 0.1 K/uL (0.0-0.5) Basophils # (Auto) 0.0 K/uL (0.0-0.1) Nucleated RBC Absolute Count (auto) 0.00 K/uL Peripheral Blood Smear Yes Y/N Sodium Level 136 mmol/L (137-145) Potassium Level 4.1 mmol/L (3.5-5.0) Chloride Level 102 mmol/L (98-107) Carbon Dioxide Level 25 mmol/L (22-31) Blood Urea Nitrogen 7 mg/dl (7-18) Creatinine 0.50 mg/dl (0.52-1.04) Glomerular Filtration Rate Calc > 60.0 Random Glucose 106 mg/dl (75-110) Calcium Level 9.5 mg/dl (8.4-10.2) Total Bilirubin 0.4 mg/dl (0.2-1.3) Aspartate Amino Transf (AST/SGOT) 68 U/L (0-35) Alanine Aminotransferase (ALT/SGPT) 64 U/L (0-56) Alkaline Phosphatase 82 U/L (0-126) Total Protein 6.6 g/dl (6.3-8.2) Albumin 3.8 g/dl (3.5-5.0) Chemistry Test 03/08/18 06:01 03/09/18 06:43 03/11/18 12:50 03/12/18 06:44 Magnesium Level 1.9 mg/dl (1.7-2.2) Ammonia 12 UMOL/L (9-33) B-Type Natriuretic Peptide 8 pg/ml (0-100) Tuberculin Skin Test 0 mm White Blood Count 4.9 k/uL (4.5-11.0) Red Blood Count 3.51 M/uL (4.17-5.56) Hemoglobin 12.7 g/dL (12.0-16.0) Hematocrit 37.3 % (34.0-47.0) Mean Corpuscular Volume 106.2 fL (80.0-96.0) Mean Corpuscular Hemoglobin 36.3 pg (26.0-33.0) Mean Corpuscular Hemoglobin Concent 34.2 g/dL (32.0-36.0) Red Cell Distribution Width 14.4 % (11.5-14.5) Platelet Count 65 K/uL (150-450) Mean Platelet Volume 9.1 fL (7.2-11.1) Neutrophils (%) (Auto) 63.6 % (39.4-72.5) Lymphocytes (%) (Auto) 25.9 % (17.6-49.6) Monocytes (%) (Auto) 7.8 % (4.1-12.4) Eosinophils (%) (Auto) 2.1 % (0.4-6.7) Basophils (%) (Auto) 0.6 % (0.3-1.4) Nucleated RBC Relative Count (auto) 0.0 /100WBC Neutrophils # (Auto) 3.1 K/uL (2.0-7.4) Lymphocytes # (Auto) 1.3 K/uL (1.3-3.6) Monocytes # (Auto) 0.4 K/uL (0.3-1.0) Eosinophils # (Auto) 0.1 K/uL (0.0-0.5) Basophils # (Auto) 0.0 K/uL (0.0-0.1) Nucleated RBC Absolute Count (auto) 0.00 K/uL Peripheral Blood Smear Yes Y/N Glomerular Filtration Rate Calc > 60.0 Calcium Level 9.5 mg/dl (8.4-10.2) Total Bilirubin 0.4 mg/dl (0.2-1.3) Aspartate Amino Transf (AST/SGOT) 68 U/L (0-35) Alanine Aminotransferase (ALT/SGPT) 64 U/L (0-56) Alkaline Phosphatase 82 U/L (0-126) Total Protein 6.6 g/dl (6.3-8.2) Albumin 3.8 g/dl (3.5-5.0) Vital Signs Date Time Temp Pulse Resp B/P (MAP) Pulse Ox O2 Delivery O2 Flow Rate FiO2 03/14/18 05:48 97.3 101 106/73 (84) 93 Room Air 03/13/18 04:04 15 Muscle Strength and Tone: WNL Gait and Station: Steady S Medications Reviewed: Side Effects, Benefits of Medication, Risks Allergies Reviewed: Yes Mental Status Exam General Appearance: Casual, Well Groomed, Good Eye Contact, Cooperative, Polit e, Good Interaction; No Unkept, No Tearful, No Psychomotor Agitation, No Psychomotor Retardation, No Bizarre Mannerisms, No Tics Speech: Clear, Spontaneous, Normal Rate, Normal Rhythm, Normal Volume, Normal Tone; No Slurred, No Garbled, No Rambling Mood: Dysthmic/Depressed (improving, in absence of alcohol and opiates) Affect: Full and Appropriate (at times); No Sad, No Withdrawn, No Tearful, No Anxious, No Agitated Thought Process: Organized, Logical, Goal Directed; No Loose Associations, No Flight of Ideas Thought Content: No Suicidal Ideation, No Homicidal Ideation, No Delusions, No Auditory Halllucinations, No Visual Hallucinations, No Thought Broadcasting, No Ideas of Reference, No Obsessions, No Compulsions Sensorium: Clear Cognition: Alert & Oriented-Person, Alert & Oriented-Place, Alert & Oriented- Time, Uhnai-Dauxzrko-Ymduijcix Memory: Immediate, Recent, Remote Intelligence: Average Insight Judgment: Fair (improving in absence of alcohol and opiates) Result Diagram: 03/12/18 0644 03/12/18 0644 [facility] Assessment and Plan Kpui-my-Tcet Encounter Date: Mar 14, 2018 Zayq-le-Fkuw Encounter Time: 11:00 [facility] Plan: Admit to Unit, Necessary Precautions, Individual/Group Therapy, Admin/Titrate Meds, Educate Patient Tobacco Medications: Not Appropriate Condition Multpiple Antipsychotics Used: No Problems: (1) Alcohol use disorder, severe, dependence Status: Chronic (2) Opiate dependence Status: Chronic (3) Opiate withdrawal Status: Acute (4) Alcohol withdrawal Optional Permanent Comment: considered complete Last Edited By: Satish Jovel on Mar 13, 2018 12:02 Status: Resolved (5) Substance induced mood disorder Status: Acute (6) Somatic symptom and related disorders Optional Permanent Comment: partially fueled by learned behavior regarding seeking of opiates. Last Edited By: Satish Jovel on Mar 14, 2018 12:17 Status: Chronic Condition 1. continue treatment. 2. EKG, labs today 3. lower amitriptyline, increase trazodone, stop lactulose, and stop zofran. Problem Qualifiers (1) Opiate dependence: Substance use status: with opioid-induced mood disorder Qualified Codes: F11.24 - Opioid dependence with opioid-induced mood disorder (2) Alcohol withdrawal: Complication of substance-induced condition: with unspecified complication Qualified Codes: F10.239 - Alcohol dependence with withdrawal, unspecified SATISH JOVEL MD Mar 14, 2018 12:23
[2018-03-14 13:53] LABS: PLATELET COUNT, AUTOMATED 114 K/uL (150-450)
--- NOTE | 2018-03-14 14:03 | EKG ---
FACILITY: [facility] PATIENT NAME: ELIAZAR JETT : [id number] MR: [id number] V: [id number] EXAM DATE: ORDERING PHYSICIAN: SATISH JOVEL TECHNOLOGIST: BRANDIE Test Reason : SUBSTANCE WITHDRA Blood Pressure : / mmHG Vent. Rate : 079 BPM Atrial Rate : 079 BPM P-R Int : 140 ms QRS Dur : 086 ms QT Int : 404 ms P-R-T Axes : 062 069 058 degrees QTc Int : 463 ms Normal sinus rhythm Normal ECG No previous ECGs available Confirmed by JONE PANG ([id number] on 03/14/2018 9:26:41 PM Referred By: MED Confirmed By:JONE PANG
[2018-03-14 20:19] VITALS: BP 109/81
[2018-03-14] MEDS ORDERED: traZODone HCL 50 MG TAB PO SCH (21:00)
[2018-03-14] MEDS ORDERED: AMITRIPTYLINE HCL 25 MG TAB PO SCH (21:00)
[2018-03-15 06:17] VITALS: BP 118/84
[2018-03-15] MEDS: MULTIVITAMINS TAB PO SCH (08:21)
[2018-03-15] MEDS: THIAMINE HCL 100 MG TAB PO SCH (08:21)
[2018-03-15] MEDS: FOLIC ACID 1 MG TAB PO SCH (08:21)
[2018-03-15] MEDS: POTASSIUM CHL 20 MEQ TABCR PO SCH ×2 (08:41→17:30)
[2018-03-15] MEDS: FUROSEMIDE 20 MG TAB PO SCH (08:42)
[2018-03-15] MEDS: SPIRONOLACTONE 25 MG TAB PO SCH (08:42)
--- NOTE | 2018-03-15 10:05 | BHS Progress Note ---
BHS - Subjective Progress Notes Subjective "I miss alcohol more than the opiates. I'm not having any withdrawal symptoms. I just need to sleep." Reports insufficient sleep last pm with Trazadone and Amitriptyline, will trial Quetiapine this pm Discussed patient w/psychiatrist this am, who has been involved in her care throughout week Rash to upper extremities, lower extremities, torso, burning, denies itching, states shes always been allergic to detergents, also noticed rash worsened with Hydroxyzine, will dc and change to soda linens Rating depression 2/10, anxiety 8/10 (10 worst) Denies anger, mood swings Racing thoughts at night, denies AVH Denies urge to harm self Suicidal Ideation: None Homicidal Ideation: None BHS - Objective Physical Exam Vital Signs Allergies Coded Allergies ketorolac (Verified Allergy, Mild, HIVES, 03/07/18) aspirin (Verified Allergy, Unknown, HIVES, 03/07/18) patient reports hives codeine (Verified Allergy, Unknown, 03/07/18) tramadol (Verified Allergy, Unknown, 03/07/18) Uncoded Allergies SULFA DRUGS ( Allergy, Unknown, 03/07/18) Vital Signs Date Time Temp Pulse Resp B/P (MAP) Pulse Ox O2 Delivery O2 Flow Rate FiO2 03/15/18 06:17 97.4 104 118/84 (95) 93 Room Air 03/14/18 10:00 16 Deferred Medications (Trade) Dose Ordered Sig/Netta Route PRN Reason Start Time Stop Time Status Last Admin Dose Admin Al Hydrox/Mg Hydrox/Simethicone (Maalox(*) 30 ml Udcup (Or Equiv)) 30 ml Q4H PRN PO DYSPEPSIA 03/07/18 15:50 04/06/18 15:49 03/12/18 17:13 Amitriptyline HCl (Elavil 25 Mg Tab (Or Equiv)) 75 mg QHS PO 03/14/18 21:00 04/13/18 20:59 03/14/18 21:18 Docusate Sodium (Colace(*) 100 Mg Cap (Or Equiv)) 100 mg BID PO 03/09/18 10:45 03/09/18 12:00 DC 03/09/18 11:56 Fentanyl (Duragesic 50 Mcg Tdsy (Or Equiv)) 50 mcg Q48H@2100 TD 03/07/18 21:00 03/12/18 11:08 DC 03/09/18 21:00 Folic Acid (Folic Acid (*) 1 Mg Tab) 1 mg QDAY PO 03/08/18 09:00 04/07/18 08:59 03/15/18 08:21 Furosemide (Lasix(*) 20 Mg Tab (Or Equiv)) 20 mg QDAY PO 03/08/18 09:00 04/07/18 08:59 03/15/18 08:42 Hydroxyzine Pamoate (Vistaril(*) 25 Mg Cap (Or Equiv)) 50 mg Q4H PRN PO ANXIETY/INSOMNIA 03/13/18 12:05 04/11/18 18:54 03/14/18 21:18 Hydroxyzine HCl (Atarax(*) 25 Mg Tab (Or Equiv)) 50 mg ONCE ONCE PO 03/12/18 12:50 03/12/18 12:53 DC 03/12/18 13:11 Lactulose (Lactulose (*) 10 Gm/15 ml Udcup) 30 gm DAILY PO 03/10/18 09:00 03/14/18 11:01 DC 03/10/18 08:09 Lorazepam (Ativan(*) 1 Mg Tab (Or Equiv)) PER NWI PROTOCOL Q1H PRN PO FOLLOW NWI/SYBIL PROTOCOL 03/07/18 20:20 03/12/18 12:37 DC 03/11/18 14:06 Miscellaneous Information (Nicotrol Cartridge) 1 each PRN PRN PO NICOTINE REPLACEMENT 03/07/18 17:35 03/08/18 14:05 DC 03/07/18 19:53 Multivitamins (Thera-M Enhanced Tab (Or Equiv)) 1 each QDAY PO 03/08/18 09:00 04/07/18 08:59 03/15/18 08:21 Nicotine (Nicotrol Inhaler 10 Mg/Inh (Or Equiv)) 10 mg PRN PRN INH NICOTINE REPLACEMENT 03/13/18 14:55 04/12/18 14:54 03/14/18 09:56 Nicotine Polacrilex (Nicorette 2 Mg Gum (Or Equiv)) 2 mg Q1-2H PRN PO NICOTINE REPLACEMENT 03/08/18 14:05 03/13/18 14:54 DC 03/13/18 12:33 Ondansetron HCl (Zofran(*) 4 Mg Odt(Or Equiv)) 4 mg Q6H PRN SL NAUSEA/VOMITING 03/08/18 12:35 03/14/18 11:20 DC 03/11/18 09:31 Oxycodone HCl (Oxy Ir (*) (Or Equiv)) 5 mg Q6H PRN PO BREAKTHROUGH PAIN 03/10/18 15:30 03/11/18 10:39 DC 03/11/18 05:15 Polyethylene Glycol (Miralax 17 Gm Pkt (Or Equiv)) 17 gm QDAY PO 03/09/18 10:45 03/09/18 12:00 DC 03/09/18 11:56 Potassium Chloride (Klor-Con M20 (*) 20 Meq Tabcr (Or Equiv)) 20 meq BIDBS PO 03/08/18 17:00 04/07/18 16:59 03/15/18 08:41 Spironolactone (Aldactone 25 Mg Tab (Or Equiv)) 50 mg QDAY PO 03/08/18 09:00 04/07/18 08:59 03/15/18 08:42 Thiamine HCl (Vitamin B-1(*) 100 Mg Tab (Or Equiv)) 100 mg QDAY PO 03/08/18 09:00 04/07/18 08:59 03/15/18 08:21 Trazodone HCl (Desyrel 50 Mg Tab (Or Equiv)) 300 mg QHS PO 03/14/18 21:00 04/13/18 20:59 03/14/18 21:17 Laboratory Tests 03/14/18 13:46 Laboratory Tests 03/11/18 12:50: Tuberculin Skin Test 0 03/12/18 06:44: Peripheral Blood Smear Yes 03/14/18 13:46: White Blood Count 8.2, Red Blood Count 4.20, Hemoglobin 14.9, Hematocrit 44.0, Mean Corpuscular Volume 104.7, Mean Corpuscular Hemoglobin 35.5, Mean Corpuscul ar Hemoglobin Concent 33.9, Red Cell Distribution Width 14.0, Platelet Count 114 , Mean Platelet Volume 9.1, Neutrophils (%) (Auto) 80.3, Lymphocytes (%) (Auto) 11.5, Monocytes (%) (Auto) 7.3, Eosinophils (%) (Auto) 0.4, Basophils (%) (Auto) 0.5, Nucleated RBC Relative Count (auto) 0.0, Neutrophils # (Auto) 6.6, Lymphocytes # (Auto) 0.9, Monocytes # (Auto) 0.6, Eosinophils # (Auto) 0.0, Basophils # (Auto) 0.0, Nucleated RBC Absolute Count (auto) 0.00, Sodium Level 140, Potassium Level 4.0, Chloride Level 103, Carbon Dioxide Level 22, Blood Urea Nitrogen 7, Creatinine 0.60, Glomerular Filtration Rate Calc > 60.0, Random Glucose 116, Calcium Level 10.9, Magnesium Level 2.2, Total Bilirubin 1.0, Aspartate Amino Transf (AST/SGOT) 129, Alanine Aminotransferase (ALT/SGPT) 127, Alkaline Phosphatase 116, Ammonia < 9, B-Type Natriuretic Peptide 12, Total Protein 9.0, Albumin 5.2 Muscle Strength and Tone: WNL Gait and Station: Steady [facility] Medications Reviewed: Side Effects, Benefits of Medication, Risks Allergies Reviewed: Yes Mental Status Exam General Appearance: Casual, Well Groomed, Good Eye Contact, Cooperative, Polite, Good Interaction; No Unkept, No Tearful, No Psychomotor Agitation, No Psychomotor Retardation, No Bizarre Mannerisms, No Tics Speech: Clear, Spontaneous, Normal Rate, Normal Rhythm, Normal Volume, Normal Tone; No Slurred, No Garbled, No Rambling Mood: Dysthmic/Depressed (rating low depression) Affect: Full and Appropriate (at times); No Sad, No Withdrawn, No Tearful, No Anxious, No Agitated Thought Process: Organized, Logical, Goal Directed; No Loose Associations, No Flight of Ideas Thought Content: No Suicidal Ideation, No Homicidal Ideation, No Delusions, No Auditory Halllucinations, No Visual Hallucinations, No Thought Broadcasting, No Ideas of Reference, No Obsessions, No Compulsions Sensorium: Clear Cognition: Alert & Oriented-Person, Alert & Oriented-Place, Alert & Oriented- Time, Moquz-Rwgebxpy-Jyurtqlur Memory: Immediate, Recent, Remote Intelligence: Average Insight Judgment: Fair (improving in absence of alcohol and opiates) Result Diagram: 03/14/18 1346 03/14/18 1346 [facility] Assessment and Plan Onvl-ei-Cmhe Encounter Date: Mar 15, 2018 Hbwg-hc-Tsha Encounter Time: 10:01 [facility] Plan: Admit to Unit, Necessary Precautions, Individual/Group Therapy, Admin/Titrate Meds, Educate Patient Tobacco Medications: Not Appropriate Condition Multpiple Antipsychotics Used: No Problems: (1) Opiate dependence Status: Chronic (2) Alcohol use disorder, severe, dependence Status: Chronic (3) Substance induced mood disorder Status: Acute Condition DC Hydroxyzine, Amitriptyline, Trazadone Start Quetiapine 200mg po every pm Continue other medications and treatment Seeking appropriate treatment facility, awaiting acceptance Problem Qualifiers (1) Opiate dependence: Substance use status: with opioid-induced mood disorder Qualified Codes: F11.24 - Opioid dependence with opioid-induced mood disorder ALFONSO SNYDER NP Mar 15, 2018 10:05
[2018-03-15 10:40] VITALS: BP 124/72
[2018-03-15 17:40] VITALS: BP 102/62
[2018-03-15] MEDS ORDERED: QUEtiapine FUM 100 MG TAB PO SCH (21:00)
[2018-03-16 06:22] VITALS: BP 111/80
[2018-03-16 06:51] LABS: PLATELET COUNT, AUTOMATED 107 K/uL (150-450)
[2018-03-16] MEDS: FOLIC ACID 1 MG TAB PO SCH (08:14)
[2018-03-16] MEDS: MULTIVITAMINS TAB PO SCH (08:14)
[2018-03-16] MEDS: THIAMINE HCL 100 MG TAB PO SCH (08:14)
[2018-03-16] MEDS: POTASSIUM CHL 20 MEQ TABCR PO SCH ×2 (08:14→16:40)
--- NOTE | 2018-03-16 10:14 | BHS Progress Note ---
BHS - Subjective Progress Notes Subjective "I'll find out tomorrow if I can go to [place]. I'm scared about tomorrow." Treatment team 03/17/18 Rash improved upper extremities Amitriptyline and Trazadone were dc'd Quetiapine started last pm "I slept but it wasn't more than 15 minutes." Depression 05/11, anxiety 10/11 States feels better than yesterday Suicidal Ideation: None Homicidal Ideation: None BHS - Objective Physical Exam Vital Signs Allergies Coded Allergies ketorolac (Verified Allergy, Mild, HIVES, 03/07/18) aspirin (Verified Allergy, Unknown, HIVES, 03/07/18) patient reports hives codeine (Verified Allergy, Unknown, 03/07/18) tramadol (Verified Allergy, Unknown, 03/07/18) Uncoded Allergies SULFA DRUGS ( Allergy, Unknown, 03/07/18) Deferred Laboratory Tests 03/16/18 06:43 Laboratory Tests 03/11/18 12:50: Tuberculin Skin Test 0 03/12/18 06:44: Peripheral Blood Smear Yes 03/14/18 13:46: Magnesium Level 2.2, Ammonia < 9, B-Type Natriuretic Peptide 12 03/16/18 06:43: White Blood Count 8.4, Red Blood Count 3.96, Hemoglobin 14.2, Hematocrit 41.5, Mean Corpuscular Volume 104.7, Mean Corpuscular Hemoglobin 35.9, Mean Corpuscular Hemoglobin Concent 34.3, Red Cell Distribution Width 14.4, Platelet Count 107, Mean Platelet Volume 8.4, Neutrophils (%) (Auto) 69.3, Lymphocytes (%) (Auto) 19.9, Monocytes (%) (Auto) 8.4, Eosinophils (%) (Auto) 1.8, Basophils (%) (Auto) 0.6, Nucleated RBC Relative Count (auto) 0.0, Neutrophils # (Auto) 5. 9, Lymphocytes # (Auto) 1.7, Monocytes # (Auto) 0.7, Eosinophils # (Auto) 0.2, Basophils # (Auto) 0.0, Nucleated RBC Absolute Count (auto) 0.00, Sodium Level 140, Potassium Level 4.1, Chloride Level 106, Carbon Dioxide Level 20, Blood Urea Nitrogen 10, Creatinine 0.50, Glomerular Filtration Rate Calc > 60.0, Random Glucose 96, Calcium Level 9.9, Total Bilirubin 0.8, Aspartate Amino Transf (AST/SGOT) 63, Alanine Aminotransferase (ALT/SGPT) 101, Alkaline Phosphatase 87, Total Protein 7.8, Albumin 4.6 Muscle Strength and Tone: WNL Gait and Station: Steady [facility] Medications Reviewed: Side Effects, Benefits of Medication, Risks Allergies Reviewed: Yes Mental Status Exam General Appearance: Casual, Well Groomed, Good Eye Contact, Cooperative, Polite, Good Interaction; No Unkept, No Tearful, No Psychomotor Agitation, No Psychomotor Retardation, No Bizarre Mannerisms, No Tics Speech: Clear, Spontaneous, Normal Rate, Normal Rhythm, Normal Volume, Normal Tone; No Slurred, No Garbled, No Rambling Mood: Dysthmic/Depressed (rating low depression 2/10) Affect: Full and Appropriate (at times); No Sad, No Withdrawn, No Tearful, No Anxious, No Agitated Thought Process: Organized, Logical, Goal Directed; No Loose Associations, No Flight of Ideas Thought Content: No Suicidal Ideation, No Homicidal Ideation, No Delusions, No Auditory Halllucinations, No Visual Hallucinations, No Thought Broadcasting, No Ideas of Reference, No Obsessions, No Compulsions Sensorium: Clear Cognition: Alert & Oriented-Person, Alert & Oriented-Place, Alert & Oriented- Time, Wjnkq-Osbfohhv-Gtsjphbra Memory: Immediate, Recent, Remote Intelligence: Average Insight Judgment: Fair (improving in absence of alcohol and opiates) Result Diagram: 03/16/18 0643 03/16/18 0643 [facility] Assessment and Plan Oqvr-su-Ueiw Encounter Date: Mar 16, 2018 Zcji-da-Bagm Encounter Time: 10:09 [facility] Plan: Admit to Unit, Necessary Precautions, Individual/Group Therapy, Admin/Titrate Meds, Educate Patient Tobacco Medications: Not Appropriate Condition Multpiple Antipsychotics Used: No Problems: (1) Opiate dependence Status: Chronic (2) Alcohol use disorder, severe, dependence Status: Chronic (3) Substance induced mood disorder Status: Acute Condition Continue current medications, increase Quetiapine to 300mg po q pm Enxourage increased activity Maintain precautions Problem Qualifiers (1) Opiate dependence: Substance use status: with opioid-induced mood disorder Qualified Codes: F11. 24 - Opioid dependence with opioid-induced mood disorder ALFONSO SNYDER NP Mar 16, 2018 10:14
[2018-03-16 10:39] VITALS: BP 106/72
[2018-03-16 16:25] VITALS: BP 118/80
[2018-03-16] MEDS: QUEtiapine FUM 100 MG TAB PO SCH (21:23)
[2018-03-17 05:47] VITALS: BP 117/86
[2018-03-17 06:49] LABS: PLATELET COUNT, AUTOMATED 91 K/uL (150-450)
[2018-03-17] MEDS: FOLIC ACID 1 MG TAB PO SCH (08:02)
[2018-03-17] MEDS: THIAMINE HCL 100 MG TAB PO SCH (08:02)
[2018-03-17] MEDS: MULTIVITAMINS TAB PO SCH (08:02)
[2018-03-17] MEDS: POTASSIUM CHL 20 MEQ TABCR PO SCH ×2 (08:02→18:20)
[2018-03-17] MEDS: FUROSEMIDE 20 MG TAB PO SCH (11:15)
[2018-03-17] MEDS: NICOTINE INH SYSTEM 10 MG/INH INH PRN ×2 (11:15→13:06)
[2018-03-17] MEDS: SPIRONOLACTONE 25 MG TAB PO SCH (11:15)
--- NOTE | 2018-03-17 11:57 | BHS Progress Note ---
BHS - Subjective Progress Notes Subjective Patient notably sleeping fairly well with 300 mg Seroquel. Patient in good spirits alerting staff and other family members that she intends to move to [place], [place] and does not want to enter residential rehab. Will plan on discharge to care of aunt tomorrow. Explained in detail to this patient and her family on phone, about necessity of abstinence from all opiates, alcohol and acetaminophen. Patient indicated an understanding and reports no pain. Patient unfortunately has had the return of some ascites in the absence of diuretics. Will restart low dose diuretics today. Explained to patient the r esults of CT scan done in [place] on March,, which will need further followup from a standpoint of cirrhosis, as well as to rule out hepatocellular carcinoma. Patient and family indicated an understanding. Will solidify outpatient care in [place] today, and plan for discharge tomorrow. Suicidal Ideation: None Homicidal Ideation: None BHS - Objective Physical Exam Vital Signs Vital Signs Date Time Temp Pulse Resp B/P (MAP) Pulse Ox O2 Delivery O2 Flow Rate FiO2 03/17/18 05:47 97.6 106 117/86 (96) 96 Room Air 03/16/18 16:25 18 Hematology Test 03/11/18 12:50 03/12/18 06:44 03/17/18 06:32 Tuberculin Skin Test 0 mm Peripheral Blood Smear Yes Y/N Red Blood Count 3.90 M/uL (4.17-5.56) Mean Corpuscular Volume 103.6 fL (80.0-96.0) Mean Corpuscular Hemoglobin 35.6 pg (26.0-33.0) Mean Corpuscular Hemoglobin Concent 34.3 g/dL (32.0-36.0) Red Cell Distribution Width 14.0 % (11.5-14.5) Mean Platelet Volume 9.2 fL (7.2-11.1) Neutrophils (%) (Auto) 70.7 % (39.4-72.5) Lymphocytes (%) (Auto) 18.8 % (17.6-49.6) Monocytes (%) (Auto) 7.3 % (4.1-12.4) Eosinophils (%) (Auto) 2.4 % (0.4-6.7) Basophils (%) (Auto) 0.8 % (0.3-1.4) Nucleated RBC Relative Count (auto) 0.1 /100WBC Neutrophils # (Auto) 6.8 K/uL (2.0-7.4) Lymphocytes # (Auto) 1.8 K/uL (1.3-3.6) Monocytes # (Auto) 0.7 K/uL (0.3-1.0) Eosinophils # (Auto) 0.2 K/uL (0.0-0.5) Basophils # (Auto) 0.1 K/uL (0.0-0.1) Nucleated RBC Absolute Count (auto) 0.01 K/uL Sodium Level 137 mmol/L (137-145) Potassium Level 4.0 mmol/L (3.5-5.0) Chloride Level 107 mmol/L (98-107) Carbon Dioxide Level 21 mmol/L (22-31) Blood Urea Nitrogen 9 mg/dl (7-18) Creatinine 0.50 mg/dl (0.52-1.04) Glomerular Filtration Rate Calc > 60.0 Random Glucose 95 mg/dl (75-110) Calcium Level 9.4 mg/dl (8.4-10.2) Magnesium Level 2.0 mg/dl (1.7-2.2) Total Bilirubin 0.6 mg/dl (0.2-1.3) Aspartate Amino Transf (AST/SGOT) 47 U/L (0-35) Alanine Aminotransferase (ALT/SGPT) 90 U/L (0-56) Alkaline Phosphatase 84 U/L (0-126) Ammonia 11 UMOL/L (9-33) B-Type Natriuretic Peptide < 5 pg/ml (0-100) Total Protein 7.4 g/dl (6.3-8.2) Albumin 4.2 g/dl (3.5-5.0) Chemistry Test 03/11/18 12:50 03/12/18 06:44 03/17/18 06:32 Tuberculin Skin Test 0 mm Peripheral Blood Smear Yes Y/N White Blood Count 9.6 k/uL (4.5-11.0) Red Blood Count 3.90 M/uL (4.17-5.56) Hemoglobin 13.9 g/dL (12.0-16.0) Hematocrit 40.4 % (34.0-47.0) Mean Corpuscular Volume 103.6 fL (80.0-96.0) Mean Corpuscular Hemoglobin 35.6 pg (26.0-33.0) Mean Corpuscular Hemoglobin Concent 34.3 g/dL (32.0-36.0) Red Cell Distribution Width 14.0 % (11.5-14.5) Platelet Count 91 K/uL (150-450) Mean Platelet Volume 9.2 fL (7.2-11.1) Neutrophils (%) (Auto) 70.7 % (39.4-72.5) Lymphocytes (%) (Auto) 18.8 % (17.6-49.6) Monocytes (%) (Auto) 7.3 % (4.1-12.4) Eosinophils (%) (Auto) 2.4 % (0.4-6.7) Basophils (%) (Auto) 0.8 % (0.3-1.4) Nucleated RBC Relative Count (auto) 0.1 /100WBC Neutrophils # (Auto) 6.8 K/uL (2.0-7.4) Lymphocytes # (Auto) 1.8 K/uL (1.3-3.6) Monocytes # (Auto) 0.7 K/uL (0.3-1.0) Eosinophils # (Auto) 0.2 K/uL (0.0-0.5) Basophils # (Auto) 0.1 K/uL (0.0-0.1) Nucleated RBC Absolute Count (auto) 0.01 K/uL Glomerular Filtration Rate Calc > 60.0 Calcium Level 9.4 mg/dl (8.4-10.2) Magnesium Level 2.0 mg/dl (1.7-2.2) Total Bilirubin 0.6 mg/dl (0.2-1.3) Aspartate Amino Transf (AST/SGOT) 47 U/L (0-35) Alanine Aminotransferase (ALT/SGPT) 90 U/L (0-56) Alkaline Phosphatase 84 U/L (0-126) Ammonia 11 UMOL/L (9-33) B-Type Natriuretic Peptide < 5 pg/ml (0-100) Total Protein 7.4 g/dl (6.3-8.2) Albumin 4.2 g/dl (3.5-5.0) Muscle Strength and Tone: WNL Gait and Station: Steady [facility] Medications Reviewed: Side Effects, Benefits of Medication, Risks Allergies Reviewed: Yes Mental Status Exam General Appearance: Casual, Well Groomed, Good Eye Contact, Cooperative, Polite, Good Interaction; No Unkept, No Tearful, No Psychomotor Agitation, No Psychomotor Retardation, No Bizarre Mannerisms, No Tics Speech: Clear, Spontaneous, Normal Rate, Normal Rhythm, Normal Volume, Normal Tone; No Slurred, No Garbled, No Rambling Mood: Dysthmic/Depressed, Euthymic Affect: Full and Appropriate (at times), Calm; No Sad, No Withdrawn, No Tearful, No Anxious, No Agitated Thought Process: Organized, Logical, Goal Directed; No Loose Associations, No Flight of Ideas Thought Content: No Suicidal Ideation, No Homicidal Ideation, No Delusions, No Auditory Halllucinations, No Visual Hallucinations, No Thought Broadcasting, No Ideas of Reference, No Obsessions, No Compulsions Sensorium: Clear Cognition: Alert & Oriented-Person, Alert & Oriented-Place, Alert & Oriented- Time, Qsfjg-Olwoshwd-Mogvauzmb Memory: Immediate, Recent, Remote Intelligence: Average Insight Judgment: Fair (improving in absence of alcohol and opiates) Result Diagram: 03/17/1832 03/17/1832 [facility] Assessment and Plan Efmj-[id number] Encounter Date: Mar 17, 2018 Rlpt-xt-[id number] Encounter Time: 10:30 [facility] Plan: Admit to Unit, Necessary Precautions, Individual/Group Therapy, Admin/Titrate Meds, Educate Patient Tobacco Medications: Not Appropriate Condition Multpiple Antipsychotics Used: No Problems: (1) Alcohol use disorder, severe, dependence Status: Chronic (2) Opiate dependence Status: Chronic (3) Opiate withdrawal Status: Acute (4) Alcohol withdrawal Optional Permanent Comment: considered complete Last Edited By: Satish Jovel on Mar 13, 2018 12:02 Status: Resolved (5) Substance induced mood disorder Status: Acute (6) Somatic symptom and related disorders Optional Permanent Comment: partially fueled by learned behavior regarding seeking of opiates. Last Edited By: Satish Jovel on Mar 14, 2018 12:17 Status: Chronic Condition 1. re-start diuretics. 2. solidify outpatient care plans in [facility] 3. plan for discharge tomorrow. Problem Qualifiers (1) Opiate dependence: Substance use status: with opioid-induced mood disorder Qualified Codes: F11.24 - Opioid dependence with opioid-induced mood disorder (2) Alcohol withdrawal: Complication of substance-induced condition: with unspecified complication Qualified Codes: F10.239 - Alcohol dependence with withdrawal, unspecified SATISH JOVEL MD Mar 17, 2018 11:57
[2018-03-17 14:38] VITALS: BP 119/90
[2018-03-17 21:12] VITALS: BP 122/95
[2018-03-17] MEDS: QUEtiapine FUM 100 MG TAB PO SCH (21:25)
[2018-03-18 05:50] VITALS: BP 113/81
[2018-03-18] MEDS: POTASSIUM CHL 20 MEQ TABCR PO SCH ×2 (08:08→16:47)
[2018-03-18] MEDS: SPIRONOLACTONE 25 MG TAB PO SCH (08:09)
[2018-03-18] MEDS: FUROSEMIDE 20 MG TAB PO SCH (08:09)
[2018-03-18] MEDS: MULTIVITAMINS TAB PO SCH (08:09)
[2018-03-18] MEDS: THIAMINE HCL 100 MG TAB PO SCH (08:09)
[2018-03-18] MEDS: FOLIC ACID 1 MG TAB PO SCH (08:09)
--- NOTE | 2018-03-18 11:20 | BHS Progress Note ---
[facility] - Subjective Progress Notes Subjective Patient has changed her mind and now is resuming efforts to go to rehab. This decision occurred after family member has now refused to let her live with them, and will not pick her up. Will continue to secure rehab bed, and plan to move patient to crisis bed to await rehab entrance. Patient has no other c omplaints. No medication changes. Suicidal Ideation: None Homicidal Ideation: None [facility] - Objective Physical Exam Vital Signs Vital Signs Date Time Temp Pulse Resp B/P (MAP) Pulse Ox O2 Delivery O2 Flow Rate FiO2 03/18/18 05:50 97.6 101 15 113/81 (92) 97 Room Air Muscle Strength and Tone: WNL Gait and Station: Steady [facility] Medications Reviewed: Side Effects, Benefits of Medication, Risks Allergies Reviewed: Yes Mental Status Exam General Appearance: Casual, Well Groomed, Good Eye Contact, Cooperative, Polite, Good Interaction; No Unkept, No Tearful, No Psychomotor Agitation, No Psychomotor Retardation, No Bizarre Mannerisms, No Tics Speech: Clear, Spontaneous, Normal Rate, Normal Rhythm, Normal Volume, Normal Tone; No Slurred, No Garbled, No Rambling Mood: Euthymic Affect: Full and Appropriate, Calm; No Sad, No Withdrawn, No Tearful, No Anxious, No Agitated Thought Process: Organized, Logical, Goal Directed; No Loose Associations, No Flight of Ideas Thought Content: No Suicidal Ideation, No Homicidal Ideation, No Delusions, No Auditory Halllucinations, No Visual Hallucinations, No Thought Broadcasting, No Ideas of Reference, No Obsessions, No Compulsions Sensorium: Clear Cognition: Alert & Oriented-Person, Alert & Oriented-Place, Alert & Oriented- Time, Nocso-Lfvhpqkt-Llamyjfob Memory: Immediate, Recent, Remote Intelligence: Average Insight Judgment: Fair (improving in absence of alcohol and opiates) Result Diagram: 03/17/1863103/17/18631 [facility] Assessment and Plan Fijd-jc-[id number] Encounter Date: Mar 18, 2018 Rphv-dx-[id number] Encounter Time: 08:30 [facility] Plan: Admit to Unit, Necessary Precautions, Individual/Group Therapy, Admin/Titrate Meds, Educate Patient Tobacco Medications: Not Appropriate Condition Multpiple Antipsychotics Used: No Problems: (1) Alcohol use disorder, severe, dependence Status: Chronic (2) Opiate dependence Status: Chronic (3) Opiate withdrawal Status: Resolved (4) Alcohol withdrawal Optional Permanent Comment: considered complete Last Edited By: Satish Jovel on Mar 13, 2018 12:02 Status: Resolved (5) Substance induced mood disorder Status: Acute (6) Somatic symptom and related disorders Optional Permanent Comment: partially fueled by learned behavior regarding seeking of opiates. Last Edited By: Satish Jovel on Mar 14, 2018 12:17 Status: Chronic Condition 1. patient is medically cleared and stable for entrance into rehab program. 2. solidify placement plans. Problem Qualifiers (1) Opiate dependence: Substance use status: with opioid-induced mood disorder Qualified Codes: F11. 24 - Opioid dependence with opioid-induced mood disorder (2) Alcohol withdrawal: Complication of substance-induced condition: with unspecified complication Qualified Codes: F10.239 - Alcohol dependence with withdrawal, unspecified SATISH JOVEL MD Mar 18, 2018 11:20
[2018-03-18 13:26] VITALS: BP 126/90
[2018-03-18] MEDS: NICOTINE INH SYSTEM 10 MG/INH INH PRN (14:11)
[2018-03-18] MEDS: QUEtiapine FUM 100 MG TAB PO SCH (21:16)
[2018-03-18 21:26] VITALS: BP 131/95
[2018-03-18] MEDS: NICOTINE POLACRILEX 2 MG GUM PO PRN (22:17)
[2018-03-19] MEDS ORDERED: SPIRONOLACTONE 25 MG TAB PO SCH
[2018-03-19] MEDS ORDERED: FUROSEMIDE 20 MG TAB PO SCH
[2018-03-19] MEDS ORDERED: MULTIVITAMINS TAB PO SCH
[2018-03-19] MEDS ORDERED: FOLIC ACID 1 MG TAB PO SCH
[2018-03-19] MEDS ORDERED: THIAMINE HCL 100 MG TAB PO SCH
[2018-03-19] MEDS ORDERED: POTASSIUM CHL 20 MEQ TABCR PO SCH
[2018-03-19 03:06] VITALS: BP 120/87
[2018-03-19] MEDS: POTASSIUM CHL 20 MEQ TABCR PO SCH ×2 (08:11→17:13)
[2018-03-19] MEDS: THIAMINE HCL 100 MG TAB PO SCH (08:12)
[2018-03-19] MEDS: FUROSEMIDE 20 MG TAB PO SCH (08:12)
[2018-03-19] MEDS: SPIRONOLACTONE 25 MG TAB PO SCH (08:12)
[2018-03-19] MEDS: FOLIC ACID 1 MG TAB PO SCH (08:12)
[2018-03-19] MEDS: MULTIVITAMINS TAB PO SCH (08:12)
[2018-03-19] MEDS ORDERED: LOPERAMIDE HCL 2 MG CAP PO ONE (08:15)
[2018-03-19] MEDS: LOPERAMIDE HCL 2 MG CAP PO PRN ×5 (08:35→12:19)
[2018-03-19] MEDS: NICOTINE POLACRILEX 2 MG GUM PO PRN ×2 (10:38→13:25)
[2018-03-19 10:59] LABS: PLATELET COUNT, AUTOMATED 148 K/uL (150-450)
[2018-03-19 13:00] VITALS: BP 120/68
[2018-03-19] MEDS ORDERED: INFLUENZA VIRUS VAC 0.5ML SYR IM ONLY ONE (13:05)
--- NOTE | 2018-03-19 13:31 | BHS Progress Note ---
[facility] - Subjective Progress Notes Subjective Patient reports feeling in good spirits overall, and is committed to going to [facility] and await entrance into rehab. Will hopefully be able to make final plans today, and discharge tomorrow. Patient is medically cleared to enter rehab. routine lab work today. No other concerns. Suicidal Ideation: None Homicidal Ideation: None [facility] - Objective Physical Exam Vital Signs Vital Signs Date Time Temp Pulse Resp B/P (MAP) Pulse Ox O2 Delivery O2 Flow Rate FiO2 03/19/18 13:00 99.7 106 120/68 (85) 97 Room Air 03/19/18 03:06 15 Muscle Strength and Tone: WNL Gait and Station: Steady [facility] Medications Reviewed: Side Effects, Benefits of Medication, Risks Allergies Reviewed: Yes Mental Status Exam General Appearance: Casual, Well Groomed, Good Eye Contact, Cooperative, Polite, Good Interaction; No Unkept, No Tearful, No Psychomotor Agitation, No Psychomotor Retardation, No Bizarre Mannerisms, No Tics Speech: Clear, Spontaneous, Normal Rate, Normal Rhythm, Normal Volume, Normal Tone; No Slurred, No Garbled, No Rambling Mood: Euthymic Affect: Full and Appropriate, Calm; No Sad, No Withdrawn, No Tearful, No Anxious, No Agitated Thought Process: Organized, Logical, Goal Directed; No Loose Associations, No Flight of Ideas Thought Content: No Suicidal Ideation, No Homicidal Ideation, No Delusions, No Auditory Halllucinations, No Visual Hallucinations, No Thought Broadcasting, No Ideas of Reference, No Obsessions, No Compulsions Sensorium: Clear Cognition: Alert & Oriented-Person, Alert & Oriented-Place, Alert & Oriented- Time, Efjqi-Zoshwhkf-Pwhaxsrzx Memory: Immediate, Recent, Remote Intelligence: Average Insight Judgment: Fair (improving in absence of alcohol and opiates) Result Diagram: 03/19/18 1054 03/19/18 1054 [facility] Assessment and Plan [id number]-[id number] Encounter Date: Mar 19, 2018 Cghv-ba-Bixt Encounter Time: 11:00 [facility] Plan: Admit to Unit, Necessary Precautions, Individual/Group Therapy, Admin/Titrate Meds, Educate Patient Tobacco Medications: Not Appropriate Condition Multpiple Antipsychotics Used: No Problems: (1) Alcohol use disorder, severe, dependence Status: Chronic (2) Opiate dependence Status: Chronic (3) Opiate withdrawal Status: Resolved (4) Alcohol withdrawal Optional Permanent Comment: considered complete Last Edited By: Satish Jovel on Mar 13, 2018 12:02 Status: Resolved (5) Substance induced mood disorder Status: Acute (6) Somatic symptom and related disorders Optional Permanent Comment: partially fueled by learned behavior regarding seeking of opiates. Last Edited By: Satish Jovel on Mar 14, 2018 12:17 Status: Chronic Condition 1. finalize discharge plans for tomorrow. 2. no medication changes. 3. routine labwork today. Problem Qualifiers (1) Opiate dependence: Substance use status: with opioid-induced mood disorder Qualified Codes: F11.24 - Opioid dependence with opioid-induced mood disorder (2) Alcohol withdrawal: Complication of substance-induced condition: with unspecified complication Qualified Codes: F10.239 - Alcohol dependence with withdrawal, unspecified SATISH JOVEL MD Mar 19, 2018 13:30
[2018-03-19] MEDS ORDERED: QUEtiapine FUM 100 MG TAB PO SCH ×2 (21:00)
[2018-03-19 21:11] VITALS: BP 107/80
[2018-03-19] MEDS ORDERED: FURO20TA19 PO (22:19)
[2018-03-19] MEDS ORDERED: POTA20PA25 PO (22:22)
[2018-03-19] MEDS ORDERED: MULT-7 PO (22:23)
[2018-03-19] MEDS ORDERED: THIA100T6 (22:31)
[2018-03-19] MEDS ORDERED: POTA20TA94 PO (22:41)
[2018-03-19] MEDS ORDERED: POTA20TA85 PO (22:42)
[2018-03-19] MEDS ORDERED: SPIR50TA33 PO (23:10)
[2018-03-19] MEDS ORDERED: QUET300T18 PO (23:15)
[2018-03-19] MEDS ORDERED: FOLI-68 PO (23:18)
[2018-03-20] MEDS ORDERED: POTASSIUM CHL 20 MEQ TABCR PO SCH (08:00)
[2018-03-20] MEDS ORDERED: SPIRONOLACTONE 25 MG TAB PO SCH (09:00)
[2018-03-20] MEDS ORDERED: FOLIC ACID 1 MG TAB PO SCH (09:00)
[2018-03-20] MEDS ORDERED: MULTIVITAMINS TAB PO SCH (09:00)
[2018-03-20] MEDS ORDERED: THIAMINE HCL 100 MG TAB PO SCH (09:00)
[2018-03-20] MEDS ORDERED: FUROSEMIDE 20 MG TAB PO SCH (09:00)
--- NOTE | 2018-03-20 15:20 | SCHAAF DISCHARGE ---
DATE OF ADMISSION: March 07, 2018 DATE OF DISCHARGE: March 20, 2018 ATTENDING PHYSICIAN Jimi Fuentes MD The patient was seen at approximately 1000 hours on the a.m. of 19 March 2018 for note concerning this dictation. FINAL DIAGNOSES 1. Opiate use disorder, severe. 2. Alcohol use disorder, severe. 3. Ongoing hepatic impairment, cirrhosis, and rule out hepatocellular carcinoma. 4. Patient having supportive family. REASON FOR ADMISSION This is a 32-year-old female who was brought in initially for treatment for alcohol withdrawal on the March. Patient was admitted without incident. Alcohol withdrawal was considered significant in nature in this patient who has a history of chronic hepatic impairment. Patient was also noted to be in opiate withdrawal, which was also eventually treated to completion. Patient continued to improve throughout her stay with initially presenting with multiple somatic complaints, likely driven by addiction. Patient continued somatic complaints as time went on. Patient continued to improve throughout her stay and agreed to enter residential rehab. Arrangements were made for entrance into residential rehab, and arrangements were made for patient to enter the [facility] in [place] as she awaited a rehab opening. Patient was discharged to the care of family members. Please see H and P for further details. PHYSICAL EXAMINATION Please see emergency room note. Notable for: GENERAL: Thin, 32-year-old female. No acute medical distress. VITAL SIGNS: At time of admission: Temperature 98.3, pulse 124, respiratory rate 20, blood pressure 119/89, and pulse oximetry 94% on room air. At time of discharge from [facility]: Temperature 98.9, pulse 94, respiratory rate 15, blood pressure 107/80, pulse oximetry 97% on room air. LABORATORY DATA On 03/19/2018, CBC notable for MCV and MCH both elevated at 104.8 and 35.1 respectively, platelet count continuing to rise and still low at 148,000. CMP notable for total bilirubin well within normal limits at 0.5 and AST and ALT mildly elevated, but decreasing overall at 47 and 86 on 03/19/2018. PPD was negative. Toxicology screen upon admission positive for opiates, positive for tricyclics with a serum alcohol level of 167. Negative screen. Urinalysis unremarkable. Coag panel at time of admission notable for PT elevated at 14.7 with an INR of 1.15. MENTAL STATUS EXAMINATION AT TIME OF DISCHARGE GENERAL APPEARANCE, BEHAVIOR, AND ATTITUDE: Polite, cooperative, 32-year-old female in no acute medical distress, making good eye contact. No bizarre mannerisms or tics. No periods of tearfulness. SPEECH: Within normal limits. Regular rate, rhythm, volume, and tone. MOOD: Described as improved and good. AFFECT: Full and mood congruent. THOUGHT PROCESSES: Goal directed, logical. Patient verbalizing the desire to attend treatment and continue to abstain from alcohol and opiates. No loose associations or flight of ideas. THOUGHT CONTENT: Free of auditory or visual hallucinations, ideas of reference, thought broadcastings, delusions, obsessions, compulsions. Patient adamantly denying suicidal or homicidal ideation. SENSORIUM: Clear. COGNITION: Alert and oriented to person, place, time, and situation. MEMORY: Immediate, recent, and remote estimated intact. INTELLIGENCE: Average based on interview. INSIGHT AND JUDGMENT: Overall intact and appropriate for entrance into [facility] and then followed by residential treatment. Patient suffering from long-term substance abuse issues and maladaptive stress coping mechanisms as a result. RESULTS OF TESTING IMAGING: CT of the head on March 07, 2018, was unremarkable overall, and please see CT of the abdomen done in [place] on 04 March 2018 which indicated ongoing level of chronic cirrhosis, but also indicated nodular parenchyma that would need further evaluation for potential hepatocellular carcinoma. Patient well informed as well as patient's family members of future evaluation is in need. CONSULTATIONS Please see electronic record again. Hospitalist service did follow patient briefly regarding use of diuretics and lactulose. TREATMENT Patient received medications, participated in individual and group therapy. HOSPITAL COURSE Initially, patient's alcohol withdrawal treated to completion with Ativan. Opiate withdrawal was also treated to completion. Diuretics were lessened. Lactulose was discontinued in this patient with normal ammonia level. Patient continued to have mild abdominal ascites notable. CONDITION OF PATIENT ON DISCHARGE Stable. Considered a minimal risk to herself or others and appropriate for entrance into care. DISPOSITION The patient was discharged to family members. Would, again, go to [facility] to await rehab opening and then would transfer there. Patient was strongly encouraged to avoid alcohol, Tylenol or acetaminophen-containing products, and opiates in the future. Encouraged to quit smoking as well. Could continue [id number]-[id number] nicotine replacement. Crisis line was given should symptoms return. DISCHARGE MEDICATIONS 1. Multivitamin with minerals daily. 2. Potassium chloride 20 mEq at breakfast and supper. 3. Quetiapine 300 mg at bedtime. 4. Lasix 20 mg daily. 5. Spironolactone 50 mg daily. Risks, benefits, and alternatives of the above discharge plan were discussed. Informed consent was given to proceed with the above discharge plan by this competent patient, accepting facility, and patient's family members present at time of discharge. [facility]
== END 2018-03-20 02:00 | disposition home or self-care (01) | DRG 897 ==
LOC: BHS 15:13
PROVIDERS: ADMIT Psychiatry & Neurology Psychiatry; ATTEND Psychiatry & Neurology Psychiatry
DX: F10.230 Alcohol dependence with withdrawal, uncomplicated (principal); K86.1 Other chronic pancreatitis; F11.23 Opioid dependence with withdrawal; E83.42 Hypomagnesemia; G89.29 Other chronic pain; F11.24 Opioid dependence with opioid-induced mood disorder; K70.31 Alcoholic cirrhosis of liver with ascites; F17.210 Nicotine dependence, cigarettes, uncomplicated; K59.00 Constipation, unspecified; T50.1X5A Adverse effect of loop [high-ceiling] diuretics, initial encounter; R33.9 Retention of urine, unspecified; F45.9 Somatoform disorder, unspecified; Z23 Encounter for immunization; R74.0 Nonspecific elevation of levels of transaminase and lactic acid dehydrogenase [LDH]; Y90.6 Blood alcohol level of 120-199 mg/100 ml; Z90.49 Acquired absence of other specified parts of digestive tract; Z88.6 Allergy status to analgesic agent; Z88.8 Allergy status to other drugs, medicaments and biological substances; Z81.1 Family history of alcohol abuse and dependence; Z66 Do not resuscitate; Z91.410 Personal history of adult physical and sexual abuse
CPT/HCPCS: 36415; 82040; 82140; 82247; 82310; 82374; 82435; 82565; 82947; 83735; 83880; 84075; 84132; 84155; 84295; 84450; 84460; 84520; 85025; 86580; 90471; 90674; 93005; Q0177; S0119